=== PATIENT | male | born 1945 | race Caucasian/White ===

== ENCOUNTER 2019-10-15 10:45 | Inpatient (IN) | payer OTHER, MEDICARE ==
[~2019-10-15] VITALS: Ht 167.6 cm; Wt 87.1 kg
--- NOTE | 2019-10-15 11:08 | NUR ---
PT TO ED VIA WC W/ C/O "SEVERE" TESTICULAR SWELLING STARTED TUESDAY. PT REPORTS HX OF SAME, STATES SWELLING "COMES AND GOES, BUT THIS TIME IT DIDN'T GO." PT DENIES DYSURIA.
--- NOTE | 2019-10-15 11:52 | NUR ---
PIV PLACED IN LAC. PT AND FAMILY MEMBER AWARE OF NPO STATUS FOR PENDING SURGERY
[2019-10-15] MEDS ORDERED: ONDANSETRON 2MG/ML, 2ML ONE (11:57)
[2019-10-15] MEDS ORDERED: HYDROmorphone 2 MG/ML, 1ML ONE (11:58)
[2019-10-15] MEDS ORDERED: SODIUM CHLORIDE 0.9% 1,000ML IVBOLUS ONE ×2 (12:00→14:30)
[2019-10-15] MEDS ORDERED: SODIUM CHLORIDE FLUSH 10ML SYR IVF ONE (12:00)
[2019-10-15] MEDS ORDERED: HYDROmorphone 2 MG/ML, 1ML IVPush PRN ×2 (12:00→16:30)
[2019-10-15] MEDS ORDERED: ONDANSETRON 2MG/ML, 2ML IVPush ONE (12:00)
--- NOTE | 2019-10-15 12:06 | NUR ---
PT HAD WATER ABOUT TWO HOURS AGO, REPORTS HAS NOT EATEN TODAY.
--- NOTE | 2019-10-15 12:11 | NUR ---
PT MEDICATED ORDERED. PROVIDED W/ SWAB FOR MOUTH. LAB AT BEDSIDE.
[2019-10-15 12:29] LABS: MEAN CORPUSCULAR HEMOGLOBIN 30.6 pg (27.5-34.5); MEAN CORPUSCULAR VOLUME 92.8 fL (81-97); MEAN PLATELET VOLUME 7.6 fL (7.4-10.4); PLATELET COUNT 273 x10^3/uL (130-400); RED BLOOD COUNT 5.42 x10^6/uL (4.38-5.82); RED CELL DISTRIBUTION WIDTH 14.8 % (9.4-14.8)
[2019-10-15 12:34] LABS: ALANINE AMINOTRANSFERASE 58 U/L (12-78); ANION GAP 17 mmol/L (5-15); CALCIUM 8.7 mg/dL (8.5-10.1); CHLORIDE 98 mmol/L (98-107)
--- NOTE | 2019-10-15 12:37 | NUR ---
PT REPORTS PAIN IMPROVED W/ PAIN MEDICATION. PT AWARE WAITING FOR TEST RESULTS AND CHART REVIEW BY ERP.
[2019-10-15 12:44] LABS: ALKALINE PHOSPHATASE 122 U/L (45-117); BILIRUBIN,TOTAL 2.5 mg/dL (0.2-1.0); CREATININE 2.79 mg/dL (0.7-1.3); MD YES; TOTAL PROTEIN 7.2 g/dL (6.4-8.2)
[2019-10-15 12:46] LABS: ALBUMIN 2.4 g/dL (3.4-5.0)
[2019-10-15 12:47] LABS: BANDS%(MANUAL) 19 % (0-7); LYMPH#(MANUAL) 1.29 x10^3/uL (1-3.4); LYMPHS% (MANUAL) 7 % (22-44); METAMYELOCYTES# (MANUAL) 0.18 x10^3/uL (0-0); METAMYELOCYTES% (MANUAL) 1 % (0-1); MONOS% (MANUAL) 6 % (2-9); MYELOCYTES# (MANUAL) 0.18 x10^3/uL (0-0); MYELOCYTES% (MANUAL) 1 % (0-0); NRBC % (MANUAL) 1 % (0-1); SEG#(MANUAL) 12.14 x10^3/uL (1.8-6.8); SEGS% (MANUAL) 66 % (42-75)
[2019-10-15 12:48] LABS: <PLATELET ESTIMATE> ADEQUATE; <PLT MORPHOLOGY> NORMAL PLT MORPH; ANISOCYTOSIS 1+; POLYCHROMASIA 1+; TOXIC GRAN 1+
[2019-10-15] MEDS ORDERED: CEFOTETAN PMX 1GM/50ML 50 ML IV ONE (13:00)
[2019-10-15] MEDS ORDERED: METRONIDAZOLE PMX 500MG/100ML 100 ML IV ONE (13:00)
[2019-10-15] MEDS ORDERED: CEFOTETAN PMX 1GM/50ML 50 ML ONE (13:54)
--- NOTE | 2019-10-15 14:02 | NUR ---
TASK RN NOTE: PER MD WEAVER, PT ONLY NEEDS ONE BLOOD CX TOTAL BEFORE ABX ADMIN, CEFOTETAN INFUSING AFTER BLOOD CX INITIATED X 1. PT REPORTS PAIN IMPROVED S/P DILAUDID. SURGEON AT BEDSIDE FOR CONSULT. PT A&O, RESPS EVEN AND UNLABORED, NADN. BP AND SPO2 MONITORS IN PLACE. CALL LIGHT IN REACH. AWAITING ADMIT ORDERS AND BED ASSIGNMENT AT THIS TIME. Addendum: 10/15/19 at 1404 by EBONY BREAK RN NOTE: PER MD WEAVER, PT ONLY NEEDS ONE BLOOD CX TOTAL BEFORE ABX ADMIN, CEFOTETAN INFUSING AFTER BLOOD CX INITIATED X 1. PT REPORTS PAIN IMPROVED S/P DILAUDID. SURGEON AT BEDSIDE FOR CONSULT. PT A&O, RESPS EVEN AND UNLABORED, NADN. BP AND SPO2 MONITORS IN PLACE. CALL LIGHT IN REACH. AWAITING ADMIT ORDERS AND BED ASSIGNMENT AT THIS TIME.
[2019-10-15] MEDS ORDERED: SODIUM CHLORIDE 0.9% 1,000 ML IV SCH (14:22)
--- NOTE | 2019-10-15 14:22 | NUR ---
hospitalist Swapna at bedside for admit assessment. BP 108/63 noted by MD sreekanth notified pt has already received 1L NS. RN instructed to administer 1L NS bolus at 500mL/hr.
[2019-10-15] MEDS ORDERED: morphine SULFATE 10 MG/ML, 1ML IVPush PRN (14:30)
[2019-10-15] MEDS: HEPARIN 5,000 UNITS/ML, 1ML SQ SCH (14:30)
[2019-10-15] MEDS ORDERED: ACETAMINOPHEN 325 MG TABLET PO PRN (14:30)
[2019-10-15] MEDS ORDERED: hydrALAzine 20 MG/ML, 1ML IVPush PRN (14:30)
[2019-10-15] MEDS ORDERED: LABETALOL 5MG/ML, 20ML IVPush PRN (14:30)
[2019-10-15] MEDS ORDERED: AMPICILLIN/SULBACTAM 1,500 MG in SODIUM CHLORIDE 0.9% 50 ML IV SCH ×2 (14:30→21:30)
[2019-10-15] MEDS ORDERED: OXYcodone/APAP 5/325MG TABLET PO PRN (14:30)
--- NOTE | 2019-10-15 14:30 | NUR ---
BREAK RN NOTE: REPORT GIVEN BACK TO NADIR PUGA.
--- NOTE | 2019-10-15 14:40 | NUR ---
IVF FLUID BOLUS INFUSING ORDERED
[2019-10-15] MEDS ORDERED: MIDAZOLAM 1 MG/ML, 2ML ONE (14:42)
[2019-10-15] MEDS ORDERED: FENTANYL PF 250 MCG/5ML ONE (14:43)
--- NOTE | 2019-10-15 14:56 | NUR ---
REPORT TO JEAN-CLAUDE FROM [facility].
--- NOTE | 2019-10-15 15:02 | NUR ---
PT TAKEN TO OR
[2019-10-15] MEDS ORDERED: SUGAMMADEX 200 MG/2 ML IVPush ONE (15:33)
[2019-10-15] MEDS ORDERED: DEXAMETHASONE 4 MG/ML, 1ML ONE (15:33)
[2019-10-15] MEDS ORDERED: PHENYLEPHRINE 10 MG/ML ONE (15:33)
[2019-10-15] MEDS: NYSTATIN TOPICAL POWDER 15GM TP SCH (16:00)
[2019-10-15] MEDS ORDERED: METRONIDAZOLE PMX 500MG/100ML 100 ML ONE (16:16)
[2019-10-15] MEDS ORDERED: MIDAZOLAM 1 MG/ML, 2ML IV PRN (16:30)
[2019-10-15] MEDS ORDERED: LABETALOL 5MG/ML, 20ML IV PRN (16:30)
[2019-10-15] MEDS ORDERED: hydrALAzine 20 MG/ML, 1ML IV PRN (16:30)
[2019-10-15] MEDS ORDERED: DIAZEPAM 5 MG/ML, 2ML IVPush PRN (16:30)
[2019-10-15] MEDS ORDERED: ONDANSETRON ODT 8 MG PO PRN (16:30)
[2019-10-15] MEDS ORDERED: FENTANYL PF 100 MCG/2ML IV PRN (16:30)
[2019-10-15] MEDS ORDERED: PROMETHAZINE 25 MG/ML, 1ML IV PRN (16:30)
[2019-10-15] MEDS ORDERED: MEPERIDINE/PF 25MG/ML,1ML IVPush PRN (16:30)
[2019-10-15] MEDS ORDERED: EPHEDRINE 50 MG/ML, 1ML IVPush PRN (16:30)
[2019-10-15] MEDS ORDERED: ALBUTEROL SULFATE 2.5 MG/3 ML NPPB PRN (16:30)
[2019-10-15] MEDS ORDERED: OXYcodone 5 MG/5 ML ORAL.SOL UDC PO PRN (16:30)
[2019-10-15] MEDS ORDERED: ONDANSETRON 2MG/ML, 2ML IV PRN (16:30)
[2019-10-15] MEDS ORDERED: HALOPERIDOL 5 MG/ML IV PRN (16:30)
[2019-10-15] MEDS ORDERED: PROMETHAZINE 12.5 MG SUPP PR PRN (16:30)
[2019-10-15] MEDS ORDERED: SUCCINYLCHOLINE 20 MG/ML, 10ML ONE (16:46)
[2019-10-15] MEDS ORDERED: PROPOFOL 10 MG/ML, 20ML ONE (16:46)
[2019-10-15] MEDS ORDERED: ROCURONIUM 10MG/ML,5ML ONE (16:46)
[2019-10-15] MEDS ORDERED: FENTANYL PF 100 MCG/2ML ONE (18:35)
[2019-10-15] MEDS ORDERED: HYDROmorphone 1 MG/ML, 1ML INJ ONE (18:35)
[2019-10-15 21:17] VITALS: BP 90/59
[2019-10-15 22:56] LABS: ALANINE AMINOTRANSFERASE 47 U/L (12-78); ANION GAP 17 mmol/L (5-15); CALCIUM 7.5 mg/dL (8.5-10.1); CHLORIDE 105 mmol/L (98-107); CREATININE 2.01 mg/dL (0.7-1.3)
[2019-10-15 22:58] LABS: ALKALINE PHOSPHATASE 83 U/L (45-117); BILIRUBIN,TOTAL 2.1 mg/dL (0.2-1.0); TOTAL PROTEIN 5.7 g/dL (6.4-8.2)
[2019-10-16] MEDS ORDERED: LACTATED RINGERS 1,000 ML IVBOLUS ONE
[2019-10-16] MEDS ORDERED: NALOXONE 0.4 MG/ML, 1ML IVPush ONE
[2019-10-16 00:15] VITALS: BP 89/55
[2019-10-16 00:20] VITALS: BP 108/71
[2019-10-16 00:25] VITALS: BP 110/55
[2019-10-16] MEDS ORDERED: CEFTRIAXONE PMX 2GM/50ML 50 ML IV SCH (01:00)
[2019-10-16] MEDS ORDERED: SODIUM CHLORIDE 0.9% 1,000 ML IV SCH ×3 (01:00→14:22)
[2019-10-16] MEDS ORDERED: ONDANSETRON 2MG/ML, 2ML IVPush PRN ×2 (01:00→08:30)
[2019-10-16] MEDS ORDERED: METRONIDAZOLE PMX 500MG/100ML 100 ML IV SCH (01:00)
[2019-10-16] MEDS: NYSTATIN TOPICAL POWDER 15GM TP SCH ×4 (01:26→20:58)
[2019-10-16] MEDS ORDERED: ACETAMINOPHEN 650 MG SUPP PR PRN (01:30)
[2019-10-16 01:40] LABS: MICROSCOPIC AUTO
[2019-10-16 01:41] LABS: CULTURE INDICATED? YES
[2019-10-16 01:50] LABS: CREATININE,URINE RANDOM 71.8 mg/dL
[2019-10-16 02:27] VITALS: BP 84/52
[2019-10-16 02:41] VITALS: BP 90/54
[2019-10-16] MEDS ORDERED: LACTATED RINGERS 500 ML IVBOLUS ONE (03:00)
[2019-10-16] MEDS ORDERED: DEXTROSE 50%, 50ML SYRINGE ONE (03:41)
[2019-10-16] MEDS ORDERED: DEXTROSE 50%, 50ML SYRINGE IVPush ONE (04:00)
[2019-10-16] MEDS ORDERED: PHARMACY MAY ADJ FOR RENAL FX MC PRN (04:30)
[2019-10-16 04:45] LABS: TROPONIN I 0.378 ng/mL (0.000-0.045)
[2019-10-16] MEDS: PIPERACILLIN/TAZO/PMX 2.25GM 50 ML IV SCH ×3 (04:48→18:09)
[2019-10-16 04:50] LABS: MEAN CORPUSCULAR HEMOGLOBIN 30.8 pg (27.5-34.5); MEAN CORPUSCULAR HGB CONC 33.1 g/dL (33.2-36.2); MEAN CORPUSCULAR VOLUME 93.2 fL (81-97); MEAN PLATELET VOLUME 7.8 fL (7.4-10.4); PLATELET COUNT 230 x10^3/uL (130-400); RED BLOOD COUNT 4.59 x10^6/uL (4.38-5.82); RED CELL DISTRIBUTION WIDTH 15.3 % (9.4-14.8)
[2019-10-16 04:57] LABS: ALANINE AMINOTRANSFERASE 49 U/L (12-78); ALBUMIN 1.8 g/dL (3.4-5.0); ANION GAP 18 mmol/L (5-15); CALCIUM 7.6 mg/dL (8.5-10.1); CHLORIDE 106 mmol/L (98-107)
[2019-10-16 04:59] LABS: ALKALINE PHOSPHATASE 70 U/L (45-117); BILIRUBIN,TOTAL 2.1 mg/dL (0.2-1.0); TOTAL PROTEIN 5.4 g/dL (6.4-8.2)
[2019-10-16] MEDS ORDERED: LACTATED RINGERS 1,000 ML IV SCH (05:00)
[2019-10-16 05:36] LABS: MD YES
[2019-10-16 05:38] LABS: ANISOCYTOSIS 1+; BAND#(MANUAL) 3.13 x10^3/uL; BANDS%(MANUAL) 21 % (0-7); LYMPH#(MANUAL) 0.89 x10^3/uL (1-3.4); LYMPHS% (MANUAL) 6 % (22-44); METAMYELOCYTES# (MANUAL) 0.15 x10^3/uL (0-0); METAMYELOCYTES% (MANUAL) 1 % (0-1); MONOS#(MANUAL) 0.75 x10^3/uL (0.3-2.7); MONOS% (MANUAL) 5 % (2-9); MYELOCYTES# (MANUAL) 0.15 x10^3/uL (0-0); MYELOCYTES% (MANUAL) 1 % (0-0); NRBC % (MANUAL) 2 % (0-1); POLYCHROMASIA 1+; SEG#(MANUAL) 9.83 x10^3/uL (1.8-6.8); SEGS% (MANUAL) 66 % (42-75)
[2019-10-16 05:39] LABS: <PLATELET ESTIMATE> ADEQUATE; <PLT MORPHOLOGY> NORMAL PLT MORPH; TOXIC GRAN 1+
[2019-10-16] MEDS ORDERED: NOREPINEPHRINE 8 MG in SODIUM CHLORIDE 0.9% 242 ML IV PRN (05:54)
[2019-10-16] MEDS ORDERED: FENTANYL PF 100 MCG/2ML ONE (05:59)
[2019-10-16] MEDS ORDERED: FENTANYL PF 250 MCG/5ML IVPush ONE (06:00)
[2019-10-16] MEDS ORDERED: GLUCAGON 1 MG IM PRN (06:00)
[2019-10-16] MEDS ORDERED: HEPARIN 5,000 UNITS/ML, 1ML SQ SCH (06:00)
[2019-10-16] MEDS ORDERED: SENNA/DOCUSATE TABLET NG PRN (06:00)
[2019-10-16] MEDS ORDERED: SENNA 176 MG/5 ML ORAL SOL NG PRN (06:00)
[2019-10-16] MEDS ORDERED: PHARMACY MAY ADJ FOR RENAL FX MC SCH (06:00)
[2019-10-16] MEDS ORDERED: DEXTROSE 4 GM TAB.CHEW PO PRN (06:00)
[2019-10-16] MEDS ORDERED: LIDOCAINE-MPF 1%, 2ML ENDO PRN (06:00)
[2019-10-16] MEDS ORDERED: BISACODYL 10 MG SUPP PR PRN (06:00)
[2019-10-16] MEDS ORDERED: LACTULOSE 20 GM/30 ML UDC NG PRN (06:00)
[2019-10-16] MEDS ORDERED: DEXTROSE 50%, 50ML SYRINGE IVPush PRN (06:00)
[2019-10-16] MEDS: FENTANYL PF 100 MCG/2ML IVPush PRN (06:41)
[2019-10-16] MEDS: IPRATROPIUM 0.5 MG/2.5 ML INHA INLINE SCH ×5 (06:45→22:18)
[2019-10-16] MEDS ORDERED: NALOXONE 0.4 MG/ML, 1ML ONE (08:00)
[2019-10-16] MEDS ORDERED: MORPHINE 30MG/30ML PCA.SYR IV PRN (08:30)
[2019-10-16] MEDS ORDERED: FAMOTIDINE 20 MG/2 ML IVPush SCH (08:30)
[2019-10-16] MEDS ORDERED: CEFTRIAXONE PMX 2GM/50ML 50 ML IVPB SCH (08:30)
[2019-10-16] MEDS: SODIUM BICARBONATE 8.4% 150 MEQ in DEXTROSE 5% 1,000 ML IV SCH ×3 (08:38→23:19)
[2019-10-16] MEDS: HEPARIN 5,000 UNITS/ML, 1ML SQ SCH ×3 (08:44→15:52)
[2019-10-16] MEDS ORDERED: SODIUM BICARB 8.4%, 50ML SYRINGE IVPush ONE (09:00)
[2019-10-16] MEDS: PANTOPRAZOLE 40 MG IV IV SCH (09:02)
[2019-10-16] MEDS: SODIUM CHLORIDE FLUSH 10ML SYR IVF SCH ×2 (09:03→20:58)
[2019-10-16] MEDS: PROPOFOL 100 ML IV PRN ×2 (09:11→16:49)
[2019-10-16] MEDS: METRONIDAZOLE PMX 500MG/100ML 100 ML IV SCH ×3 (09:27→20:57)
[2019-10-16] MEDS: NOREPINEPHRINE 8 MG in SODIUM CHLORIDE 0.9% 242 ML IV PRN (09:37)
[2019-10-16] MEDS ORDERED: SODIUM CHLORIDE 0.9% 1,000ML IVBOLUS ONE (11:00)
[2019-10-16] MEDS ORDERED: ALBUMIN HUMAN 25% 100 ML IV ONE ×2 (11:00)
[2019-10-16 11:06] LABS: TROPONIN I 0.365 ng/mL (0.000-0.045)
[2019-10-16 14:56] LABS: TROPONIN I 0.495 ng/mL (0.000-0.045)
[2019-10-16] MEDS ORDERED: SUCCINYLCHOLINE 20 MG/ML, 10ML ONE (16:16)
[2019-10-16] MEDS ORDERED: ETOMIDATE 20 MG/10 ML ONE (16:16)
[2019-10-16] MEDS ORDERED: PROPOFOL 10 MG/ML, 20ML ONE (16:16)
[2019-10-17] MEDS: HEPARIN 5,000 UNITS/ML, 1ML SQ SCH ×4 (00:09→23:58)
[2019-10-17] MEDS: PIPERACILLIN/TAZO/PMX 2.25GM 50 ML IV SCH ×3 (00:09→12:29)
[2019-10-17] MEDS: PROPOFOL 100 ML IV PRN ×4 (00:14→21:21)
[2019-10-17] MEDS: NOREPINEPHRINE 8 MG in SODIUM CHLORIDE 0.9% 242 ML IV PRN (00:48)
[2019-10-17] MEDS: IPRATROPIUM 0.5 MG/2.5 ML INHA INLINE SCH ×6 (02:55→22:16)
[2019-10-17] MEDS: METRONIDAZOLE PMX 500MG/100ML 100 ML IV SCH ×2 (03:06→09:15)
[2019-10-17] MEDS: FENTANYL PF 100 MCG/2ML IVPush PRN (03:48)
[2019-10-17 04:00] VITALS: BP 111/60
[2019-10-17 04:23] LABS: MEAN CORPUSCULAR HEMOGLOBIN 30.9 pg (27.5-34.5); MEAN CORPUSCULAR HGB CONC 33.5 g/dL (33.2-36.2); MEAN CORPUSCULAR VOLUME 92.2 fL (81-97); MEAN PLATELET VOLUME 7.4 fL (7.4-10.4); PLATELET COUNT 214 x10^3/uL (130-400); RED BLOOD COUNT 3.95 x10^6/uL (4.38-5.82); RED CELL DISTRIBUTION WIDTH 15.3 % (9.4-14.8)
[2019-10-17 04:34] LABS: ANION GAP 5 mmol/L (5-15); CHLORIDE 106 mmol/L (98-107)
[2019-10-17 04:38] LABS: CHOL/HDL RATIO 8.6; CHOLESTEROL, TOTAL 60 mg/dL (140-239); CREATININE 1.11 mg/dL (0.7-1.3); HDL CHOL % 12 % (26-37); HDL CHOLESTEROL (DIRECT) 7 mg/dL (40-60); LDL CHOLESTEROL,CALCULATED 12 mg/dL (54-169); LDL/HDL RATIO 1.7 (0.5-3.0); TRIGLYCERIDES 203 mg/dL (50-200); VLDL CHOLESTEROL 41 mg/dL (0-25)
[2019-10-17 04:40] LABS: MD YES
[2019-10-17 04:42] LABS: BANDS%(MANUAL) 6 % (0-7); EOS#(MANUAL) 0.12 x10^3/uL (0.0-0.4); EOS% (MANUAL) 1 % (1-7); LYMPHS% (MANUAL) 12 % (22-44); MONOS#(MANUAL) 0.12 x10^3/uL (0.3-2.7); MONOS% (MANUAL) 1 % (2-9); SEG#(MANUAL) 9.36 x10^3/uL (1.8-6.8); SEGS% (MANUAL) 80 % (42-75)
[2019-10-17 04:43] LABS: <PLATELET ESTIMATE> ADEQUATE; <PLT MORPHOLOGY> NORMAL PLT MORPH; ANISOCYTOSIS 1+
[2019-10-17] MEDS ORDERED: POTASSIUM CHLORIDE 30 MEQ in SODIUM CHLORIDE 0.9% 100 ML IV ONE (07:00)
[2019-10-17] MEDS ORDERED: FAMOTIDINE 20 MG/2 ML IVPush SCH ×2 (09:00→21:00)
[2019-10-17] MEDS: PANTOPRAZOLE 40 MG IV IV SCH (09:11)
[2019-10-17] MEDS: SODIUM CHLORIDE FLUSH 10ML SYR IVF SCH ×2 (09:12→19:57)
[2019-10-17] MEDS: NYSTATIN TOPICAL POWDER 15GM TP SCH ×3 (09:12→19:58)
[2019-10-17] MEDS ORDERED: TPN PER PHARMACY MC PRN (09:30)
[2019-10-17] MEDS ORDERED: CALCIUM GLUCONATE 4.6 MEQ/10 ML IVPush ONE (11:00)
[2019-10-17 11:11] LABS: PREALBUMIN < 3.0 mg/dL (20.0-40.0)
[2019-10-17] MEDS ORDERED: CALCIUM GLUCONATE 4.6 MEQ in SODIUM CHLORIDE 0.9% 100 ML IV ONE (11:30)
[2019-10-17] MEDS: POTASSIUM CHLORIDE 20 MEQ in SODIUM CHLORIDE 0.45% 1,000 ML IV SCH ×2 (12:29→20:47)
[2019-10-17] MEDS ORDERED: FENTANYL PF 100 MCG/2ML IVPush ONE (13:30)
[2019-10-17 15:23] LABS: TROPONIN I 0.579 ng/mL (0.000-0.045)
[2019-10-17] MEDS ORDERED: SMOF TPN IV SCH (17:00)
[2019-10-17] MEDS ORDERED: DEXTROSE 50%, 50ML SYRINGE IVPush PRN (17:00)
[2019-10-17] MEDS ORDERED: AMINO ACID 10% IV SCH (17:00)
[2019-10-17] MEDS ORDERED: DEXTROSE 70% IV SCH (17:00)
[2019-10-17] MEDS ORDERED: [UNRECOGNIZED DRUG - OTHER] IV SCH (17:00)
[2019-10-17] MEDS ORDERED: DEXTROSE 10% 500 ML IV PRN (17:00)
[2019-10-17] MEDS ORDERED: FAT EMUL IV SCH (17:00)
[2019-10-17] MEDS: FILTER, DISP 1.2 MICRON FOR TPN/PVN IV PRN (18:02)
[2019-10-17] MEDS: PIPERACILLIN/TAZO/PMX 3.375GM 50 ML IV SCH ×2 (18:03→23:57)
[2019-10-17] MEDS: INSULIN REGULAR MEDIUM DOSE QDAY SQ-INSULIN SCH (20:01)
[2019-10-17] MEDS: INSULIN REGULAR MEDIUM DOSE Q6H X 48HRS SQ-INSULIN SCH (20:05)
[2019-10-18] MEDS: IPRATROPIUM 0.5 MG/2.5 ML INHA INLINE SCH ×6 (02:22→22:02)
[2019-10-18] MEDS: INSULIN REGULAR MEDIUM DOSE Q6H X 48HRS SQ-INSULIN SCH ×4 (03:57→22:51)
[2019-10-18 04:22] LABS: MEAN CORPUSCULAR HEMOGLOBIN 30.5 pg (27.5-34.5); MEAN CORPUSCULAR HGB CONC 33.1 g/dL (33.2-36.2); MEAN PLATELET VOLUME 7.7 fL (7.4-10.4); PLATELET COUNT 197 x10^3/uL (130-400); RED BLOOD COUNT 3.97 x10^6/uL (4.38-5.82); RED CELL DISTRIBUTION WIDTH 15.6 % (9.4-14.8)
[2019-10-18 04:36] LABS: ALANINE AMINOTRANSFERASE 36 U/L (12-78); ALBUMIN 1.5 g/dL (3.4-5.0); ANION GAP 5 mmol/L (5-15); CALCIUM 7.2 mg/dL (8.5-10.1); CHLORIDE 110 mmol/L (98-107); CREATININE 0.88 mg/dL (0.7-1.3)
[2019-10-18 04:39] LABS: ALKALINE PHOSPHATASE 70 U/L (45-117); BILIRUBIN,TOTAL 0.9 mg/dL (0.2-1.0); TOTAL PROTEIN 4.7 g/dL (6.4-8.2)
[2019-10-18] MEDS: PIPERACILLIN/TAZO/PMX 3.375GM 50 ML IV SCH ×4 (05:36→23:17)
[2019-10-18] MEDS: PROPOFOL 100 ML IV PRN (05:38)
[2019-10-18 05:42] LABS: BASOPHILS % (AUTO) 0 % (0-1); EOSINOPHILS # (AUTO) 0.29 x10^3/uL (0-0.4); EOSINOPHILS % (AUTO) 2 % (1-7); LYMPHOCYTES # (AUTO) 1.33 x10^3/uL (1-3.4); LYMPHOCYTES % (AUTO) 10 % (22-44); MD SCAN; MONOCYTES # (AUTO) 0.22 x10^3/uL (0.2-0.8); MONOCYTES % (AUTO) 2 % (2-9); NEUTROPHILS # (AUTO) 11.91 x10^3/uL (1.8-6.8); NEUTROPHILS % (AUTO) 87 % (42-75)
[2019-10-18] MEDS: NYSTATIN TOPICAL POWDER 15GM TP SCH ×3 (09:19→20:30)
[2019-10-18] MEDS: HEPARIN 5,000 UNITS/ML, 1ML SQ SCH ×3 (09:19→23:17)
[2019-10-18] MEDS: SODIUM CHLORIDE FLUSH 10ML SYR IVF SCH ×2 (09:19→20:30)
--- NOTE | 2019-10-18 10:31 | NUR ---
promote at trickle (10 ml/hr) until ok per surgery MD to advance
[2019-10-18] MEDS ORDERED: [UNRECOGNIZED DRUG - OTHER] IV SCH ×2 (17:00)
[2019-10-18] MEDS ORDERED: AMINO ACID 10% IV SCH ×2 (17:00)
[2019-10-18] MEDS ORDERED: SMOF TPN IV SCH ×2 (17:00)
[2019-10-18] MEDS ORDERED: FAT EMUL IV SCH ×2 (17:00)
[2019-10-18] MEDS ORDERED: DEXTROSE 70% IV SCH ×2 (17:00)
[2019-10-18] MEDS: FILTER, DISP 1.2 MICRON FOR TPN/PVN IV PRN (17:29)
[2019-10-18] MEDS: INSULIN REGULAR MEDIUM DOSE QDAY SQ-INSULIN SCH (20:25)
[2019-10-19] MEDS: PROPOFOL 100 ML IV PRN (00:14)
[2019-10-19] MEDS: IPRATROPIUM 0.5 MG/2.5 ML INHA INLINE SCH ×6 (02:01→23:00)
[2019-10-19 04:46] LABS: MEAN CORPUSCULAR HEMOGLOBIN 30.8 pg (27.5-34.5); MEAN CORPUSCULAR HGB CONC 33.5 g/dL (33.2-36.2); MEAN CORPUSCULAR VOLUME 91.8 fL (81-97); PLATELET COUNT 164 x10^3/uL (130-400); RED BLOOD COUNT 3.94 x10^6/uL (4.38-5.82); RED CELL DISTRIBUTION WIDTH 15.4 % (9.4-14.8)
[2019-10-19 04:59] LABS: ANION GAP 4 mmol/L (5-15); CALCIUM 7.5 mg/dL (8.5-10.1); CHLORIDE 111 mmol/L (98-107); TRIGLYCERIDES 204 mg/dL (50-200)
[2019-10-19] MEDS: PIPERACILLIN/TAZO/PMX 3.375GM 50 ML IV SCH ×3 (05:10→18:06)
[2019-10-19] MEDS: INSULIN REGULAR MEDIUM DOSE Q6H X 48HRS SQ-INSULIN SCH ×3 (05:11→17:35)
[2019-10-19 05:45] LABS: MD YES
[2019-10-19 05:47] LABS: EOS#(MANUAL) 0.13 x10^3/uL (0.0-0.4); EOS% (MANUAL) 1 % (1-7); LYMPH#(MANUAL) 1.15 x10^3/uL (1-3.4); LYMPHS% (MANUAL) 9 % (22-44); METAMYELOCYTES# (MANUAL) 0.38 x10^3/uL (0-0); METAMYELOCYTES% (MANUAL) 3 % (0-1); MONOS% (MANUAL) 7 % (2-9); SEG#(MANUAL) 10.24 x10^3/uL (1.8-6.8); SEGS% (MANUAL) 80 % (42-75)
[2019-10-19 05:48] LABS: <PLATELET ESTIMATE> ADEQUATE; <PLT MORPHOLOGY> NORMAL PLT MORPH; ANISOCYTOSIS 1+; TOXIC GRAN 1+
[2019-10-19 06:18] VITALS: BP 106/59
[2019-10-19] MEDS: HEPARIN 5,000 UNITS/ML, 1ML SQ SCH ×2 (07:50→17:29)
[2019-10-19] MEDS: SODIUM CHLORIDE FLUSH 10ML SYR IVF SCH ×2 (07:51→21:10)
[2019-10-19] MEDS: NYSTATIN TOPICAL POWDER 15GM TP SCH ×3 (07:51→21:11)
[2019-10-19] MEDS: FUROSEMIDE 100 MG in SODIUM CHLORIDE 0.9% 90 ML IV PRN (09:33)
[2019-10-19] MEDS: FENTANYL PF 100 MCG/2ML IVPush PRN ×3 (14:12→17:31)
[2019-10-19] MEDS ORDERED: [UNRECOGNIZED DRUG - OTHER] IV SCH (17:00)
[2019-10-19] MEDS ORDERED: FAT EMUL IV SCH (17:00)
[2019-10-19] MEDS ORDERED: SMOF TPN IV SCH (17:00)
[2019-10-19] MEDS ORDERED: AMINO ACID 10% IV SCH (17:00)
[2019-10-19] MEDS ORDERED: DEXTROSE 70% IV SCH (17:00)
[2019-10-19] MEDS: FILTER, DISP 1.2 MICRON FOR TPN/PVN IV PRN (17:31)
[2019-10-19] MEDS: INSULIN REGULAR MEDIUM DOSE QDAY SQ-INSULIN SCH ×2 (20:14→21:10)
[2019-10-20] MEDS: HEPARIN 5,000 UNITS/ML, 1ML SQ SCH ×4 (00:09→23:22)
[2019-10-20] MEDS: PIPERACILLIN/TAZO/PMX 3.375GM 50 ML IV SCH ×5 (00:10→23:21)
[2019-10-20] MEDS: FENTANYL PF 100 MCG/2ML IVPush PRN (01:47)
[2019-10-20] MEDS: IPRATROPIUM 0.5 MG/2.5 ML INHA INLINE SCH ×3 (03:00→10:01)
[2019-10-20 04:36] VITALS: BP 115/59
[2019-10-20 05:16] LABS: MEAN CORPUSCULAR HEMOGLOBIN 30.8 pg (27.5-34.5); MEAN CORPUSCULAR HGB CONC 33.8 g/dL (33.2-36.2); MEAN CORPUSCULAR VOLUME 91.2 fL (81-97); MEAN PLATELET VOLUME 8.4 fL (7.4-10.4); PLATELET COUNT 184 x10^3/uL (130-400); RED BLOOD COUNT 4.23 x10^6/uL (4.38-5.82); RED CELL DISTRIBUTION WIDTH 15.3 % (9.4-14.8)
[2019-10-20 05:27] LABS: ANION GAP 6 mmol/L (5-15); CALCIUM 7.9 mg/dL (8.5-10.1); CHLORIDE 104 mmol/L (98-107); CREATININE 0.85 mg/dL (0.7-1.3)
[2019-10-20 05:51] LABS: MD YES
[2019-10-20 05:54] LABS: <PLATELET ESTIMATE> ADEQUATE; <PLT MORPHOLOGY> NORMAL PLT MORPH; ANISOCYTOSIS 1+; BAND#(MANUAL) 0.14 x10^3/uL; BANDS%(MANUAL) 1 % (0-7); EOS#(MANUAL) 0.29 x10^3/uL (0.0-0.4); EOS% (MANUAL) 2 % (1-7); LYMPHS% (MANUAL) 16 % (22-44); METAMYELOCYTES# (MANUAL) 0.29 x10^3/uL (0-0); METAMYELOCYTES% (MANUAL) 2 % (0-1); MONOS#(MANUAL) 0.14 x10^3/uL (0.3-2.7); MONOS% (MANUAL) 1 % (2-9); SEG#(MANUAL) 11.23 x10^3/uL (1.8-6.8); SEGS% (MANUAL) 78 % (42-75)
[2019-10-20] MEDS: NYSTATIN TOPICAL POWDER 15GM TP SCH ×3 (09:13→21:30)
[2019-10-20] MEDS: SODIUM CHLORIDE FLUSH 10ML SYR IVF SCH ×2 (09:13→21:31)
[2019-10-20] MEDS: INSULIN LISPRO 100 UNITS/ML, PEN SQ-INSULIN SCH ×3 (13:38→23:21)
[2019-10-20] MEDS: FUROSEMIDE 100 MG in SODIUM CHLORIDE 0.9% 90 ML IV PRN (13:47)
[2019-10-20] MEDS ORDERED: SMOF TPN IV SCH (17:00)
[2019-10-20] MEDS ORDERED: [UNRECOGNIZED DRUG - OTHER] IV SCH (17:00)
[2019-10-20] MEDS ORDERED: FAT EMUL IV SCH (17:00)
[2019-10-20] MEDS ORDERED: AMINO ACID 10% IV SCH (17:00)
[2019-10-20] MEDS ORDERED: DEXTROSE 70% IV SCH (17:00)
[2019-10-20] MEDS: FILTER, DISP 1.2 MICRON FOR TPN/PVN IV PRN (17:51)
[2019-10-21] MEDS: PIPERACILLIN/TAZO/PMX 3.375GM 50 ML IV SCH ×4 (05:40→23:59)
[2019-10-21] MEDS: INSULIN LISPRO 100 UNITS/ML, PEN SQ-INSULIN SCH ×4 (05:40→20:13)
[2019-10-21 06:06] LABS: MEAN CORPUSCULAR HEMOGLOBIN 30.7 pg (27.5-34.5); MEAN CORPUSCULAR HGB CONC 33.2 g/dL (33.2-36.2); MEAN CORPUSCULAR VOLUME 92.4 fL (81-97); MEAN PLATELET VOLUME 8.7 fL (7.4-10.4); PLATELET COUNT 237 x10^3/uL (130-400); RED BLOOD COUNT 4.33 x10^6/uL (4.38-5.82); RED CELL DISTRIBUTION WIDTH 14.9 % (9.4-14.8)
[2019-10-21 06:15] LABS: ANION GAP 5 mmol/L (5-15); CALCIUM 8.1 mg/dL (8.5-10.1); CHLORIDE 103 mmol/L (98-107); CREATININE 0.84 mg/dL (0.7-1.3)
[2019-10-21 06:21] LABS: MD YES
[2019-10-21 06:23] LABS: BASOS#(MANUAL) 0.15 x10^3/uL (0-0.1); BASOS% (MANUAL) 1 % (0-1); EOS% (MANUAL) 2 % (1-7); LYMPH#(MANUAL) 1.18 x10^3/uL (1-3.4); LYMPHS% (MANUAL) 8 % (22-44); METAMYELOCYTES# (MANUAL) 0.44 x10^3/uL (0-0); METAMYELOCYTES% (MANUAL) 3 % (0-1); MONOS#(MANUAL) 0.74 x10^3/uL (0.3-2.7); MONOS% (MANUAL) 5 % (2-9); MYELOCYTES# (MANUAL) 0.15 x10^3/uL (0-0); MYELOCYTES% (MANUAL) 1 % (0-0); SEG#(MANUAL) 11.84 x10^3/uL (1.8-6.8); SEGS% (MANUAL) 80 % (42-75)
[2019-10-21 06:24] LABS: <PLATELET ESTIMATE> ADEQUATE; ANISOCYTOSIS 1+
[2019-10-21 06:25] LABS: <PLT MORPHOLOGY> NORMAL PLT MORPH
[2019-10-21 06:26] LABS: TOXIC GRAN 1+
[2019-10-21] MEDS ORDERED: MAGNESIUM SULFATE PMX 2GM/50ML 50 ML IV ONE (07:00)
[2019-10-21] MEDS: SODIUM CHLORIDE FLUSH 10ML SYR IVF SCH ×2 (07:31→20:12)
[2019-10-21] MEDS: NYSTATIN TOPICAL POWDER 15GM TP SCH ×3 (07:52→20:13)
[2019-10-21] MEDS: HEPARIN 5,000 UNITS/ML, 1ML SQ SCH ×3 (07:54→23:59)
--- NOTE | 2019-10-21 11:59 | NUR ---
REC: BRAIDING MACHINE TENDER intervention in a SNF. Rec: Thin liquid diet Addendum: 10/21/19 at 1159 by Aline TREVINO Amended: Links added.
[2019-10-22] MEDS: PIPERACILLIN/TAZO/PMX 3.375GM 50 ML IV SCH ×3 (05:26→17:31)
[2019-10-22 05:46] LABS: MEAN CORPUSCULAR HEMOGLOBIN 31.2 pg (27.5-34.5); MEAN CORPUSCULAR HGB CONC 33.4 g/dL (33.2-36.2); MEAN CORPUSCULAR VOLUME 93.4 fL (81-97); MEAN PLATELET VOLUME 8.3 fL (7.4-10.4); PLATELET COUNT 329 x10^3/uL (130-400); RED BLOOD COUNT 4.27 x10^6/uL (4.38-5.82); RED CELL DISTRIBUTION WIDTH 15.2 % (9.4-14.8)
[2019-10-22 05:52] LABS: ANION GAP 8 mmol/L (5-15); CALCIUM 8.2 mg/dL (8.5-10.1); CHLORIDE 104 mmol/L (98-107)
[2019-10-22 05:55] LABS: CREATININE 1.02 mg/dL (0.7-1.3)
[2019-10-22 06:29] LABS: MD YES
[2019-10-22 06:30] LABS: BAND#(MANUAL) 0.39 x10^3/uL; BANDS%(MANUAL) 3 % (0-7); EOS#(MANUAL) 0.26 x10^3/uL (0.0-0.4); EOS% (MANUAL) 2 % (1-7); LYMPH#(MANUAL) 1.44 x10^3/uL (1-3.4); LYMPHS% (MANUAL) 11 % (22-44); METAMYELOCYTES# (MANUAL) 0.26 x10^3/uL (0-0); METAMYELOCYTES% (MANUAL) 2 % (0-1); MONOS#(MANUAL) 1.05 x10^3/uL (0.3-2.7); MONOS% (MANUAL) 8 % (2-9); MYELOCYTES# (MANUAL) 0.26 x10^3/uL (0-0); MYELOCYTES% (MANUAL) 2 % (0-0); SEG#(MANUAL) 9.43 x10^3/uL (1.8-6.8); SEGS% (MANUAL) 72 % (42-75)
[2019-10-22 06:31] LABS: <PLATELET ESTIMATE> ADEQUATE; <PLT MORPHOLOGY> NORMAL PLT MORPH; ANISOCYTOSIS 1+; POLYCHROMASIA 1+
[2019-10-22] MEDS ORDERED: FUROSEMIDE 20 MG TABLET ONE (08:12)
[2019-10-22] MEDS: INSULIN LISPRO 100 UNITS/ML, PEN SQ-INSULIN SCH ×4 (08:54→20:50)
[2019-10-22] MEDS: HEPARIN 5,000 UNITS/ML, 1ML SQ SCH ×2 (08:55→16:13)
[2019-10-22] MEDS: FUROSEMIDE 10 MG/ML ORAL SOL PO SCH (08:56)
[2019-10-22] MEDS: SODIUM CHLORIDE FLUSH 10ML SYR IVF SCH ×2 (08:56→20:54)
[2019-10-22] MEDS: NYSTATIN TOPICAL POWDER 15GM TP SCH ×3 (09:01→22:26)
[2019-10-22 13:37] VITALS: BP 114/69
[2019-10-22 19:02] VITALS: BP 130/75
[2019-10-23] MEDS: PIPERACILLIN/TAZO/PMX 3.375GM 50 ML IV SCH ×5 (00:23→23:31)
[2019-10-23] MEDS: HEPARIN 5,000 UNITS/ML, 1ML SQ SCH ×4 (00:24→23:32)
[2019-10-23 01:36] VITALS: BP 125/71
[2019-10-23 05:16] VITALS: BP 128/66
[2019-10-23 06:16] LABS: BASOPHILS # (AUTO) 0.01 x10^3/uL (0-0.1); BASOPHILS % (AUTO) 0 % (0-1); EOSINOPHILS # (AUTO) 0.37 x10^3/uL (0-0.4); EOSINOPHILS % (AUTO) 3 % (1-7); LYMPHOCYTES # (AUTO) 1.38 x10^3/uL (1-3.4); LYMPHOCYTES % (AUTO) 12 % (22-44); MD NO; MEAN CORPUSCULAR HEMOGLOBIN 30.9 pg (27.5-34.5); MEAN CORPUSCULAR HGB CONC 33.1 g/dL (33.2-36.2); MEAN CORPUSCULAR VOLUME 93.1 fL (81-97); MEAN PLATELET VOLUME 8.4 fL (7.4-10.4); MONOCYTES # (AUTO) 0.92 x10^3/uL (0.2-0.8); MONOCYTES % (AUTO) 8 % (2-9); NEUTROPHILS # (AUTO) 8.41 x10^3/uL (1.8-6.8); NEUTROPHILS % (AUTO) 76 % (42-75); PLATELET COUNT 442 x10^3/uL (130-400); RED BLOOD COUNT 4.14 x10^6/uL (4.38-5.82); RED CELL DISTRIBUTION WIDTH 15.2 % (9.4-14.8)
[2019-10-23 07:49] VITALS: BP 116/68
[2019-10-23 07:58] LABS: ANION GAP 6 mmol/L (5-15); CALCIUM 8.6 mg/dL (8.5-10.1); CHLORIDE 107 mmol/L (98-107); CREATININE 0.91 mg/dL (0.7-1.3)
[2019-10-23] MEDS: INSULIN LISPRO 100 UNITS/ML, PEN SQ-INSULIN SCH ×4 (08:14→23:32)
[2019-10-23] MEDS: SODIUM CHLORIDE FLUSH 10ML SYR IVF SCH ×2 (08:15→23:31)
[2019-10-23] MEDS: NYSTATIN TOPICAL POWDER 15GM TP SCH ×3 (08:15→23:33)
[2019-10-23] MEDS: FUROSEMIDE 10 MG/ML ORAL SOL PO SCH (08:16)
--- NOTE | 2019-10-23 11:21 | NUR ---
CHOPPED/ THINS Addendum: 10/23/19 at [address] Amended: Links added.
[2019-10-23 12:48] VITALS: BP 118/66
[2019-10-23 19:20] VITALS: BP 127/72
[2019-10-24 00:42] VITALS: BP 114/67
[2019-10-24 04:46] LABS: ANION GAP 6 mmol/L (5-15); CALCIUM 8.5 mg/dL (8.5-10.1); CHLORIDE 107 mmol/L (98-107)
[2019-10-24 04:48] LABS: CREATININE 0.81 mg/dL (0.7-1.3)
[2019-10-24 04:57] LABS: BASOPHILS # (AUTO) 0.03 x10^3/uL (0-0.1); BASOPHILS % (AUTO) 0 % (0-1); EOSINOPHILS # (AUTO) 0.26 x10^3/uL (0-0.4); EOSINOPHILS % (AUTO) 3 % (1-7); LYMPHOCYTES # (AUTO) 1.41 x10^3/uL (1-3.4); LYMPHOCYTES % (AUTO) 14 % (22-44); MD NO; MEAN CORPUSCULAR HGB CONC 33.1 g/dL (33.2-36.2); MEAN CORPUSCULAR VOLUME 93.8 fL (81-97); MEAN PLATELET VOLUME 7.8 fL (7.4-10.4); MONOCYTES # (AUTO) 0.98 x10^3/uL (0.2-0.8); MONOCYTES % (AUTO) 10 % (2-9); NEUTROPHILS # (AUTO) 7.39 x10^3/uL (1.8-6.8); NEUTROPHILS % (AUTO) 73 % (42-75); PLATELET COUNT 551 x10^3/uL (130-400); RED BLOOD COUNT 4.08 x10^6/uL (4.38-5.82)
[2019-10-24] MEDS: PIPERACILLIN/TAZO/PMX 3.375GM 50 ML IV SCH ×3 (05:46→18:11)
[2019-10-24] MEDS: INSULIN LISPRO 100 UNITS/ML, PEN SQ-INSULIN SCH ×4 (07:00→21:00)
[2019-10-24 07:08] VITALS: BP 121/61
[2019-10-24] MEDS: HEPARIN 5,000 UNITS/ML, 1ML SQ SCH ×2 (08:12→16:18)
[2019-10-24] MEDS: NYSTATIN TOPICAL POWDER 15GM TP SCH ×3 (08:13→22:28)
[2019-10-24] MEDS: SODIUM CHLORIDE FLUSH 10ML SYR IVF SCH ×2 (08:13→22:28)
[2019-10-24] MEDS: FUROSEMIDE 10 MG/ML ORAL SOL PO SCH (08:13)
[2019-10-24 12:57] VITALS: BP 115/70
[2019-10-24 19:02] VITALS: BP 121/68
[2019-10-25] MEDS: PIPERACILLIN/TAZO/PMX 3.375GM 50 ML IV SCH ×5 (00:11→23:49)
[2019-10-25] MEDS: HEPARIN 5,000 UNITS/ML, 1ML SQ SCH ×4 (00:12→23:50)
[2019-10-25 01:30] VITALS: BP 110/63
[2019-10-25 06:23] LABS: BASOPHILS # (AUTO) 0.09 x10^3/uL (0-0.1); BASOPHILS % (AUTO) 1 % (0-1); EOSINOPHILS # (AUTO) 0.23 x10^3/uL (0-0.4); EOSINOPHILS % (AUTO) 3 % (1-7); LYMPHOCYTES # (AUTO) 1.68 x10^3/uL (1-3.4); LYMPHOCYTES % (AUTO) 18 % (22-44); MD NO; MEAN CORPUSCULAR HEMOGLOBIN 31.1 pg (27.5-34.5); MEAN CORPUSCULAR VOLUME 94.1 fL (81-97); MEAN PLATELET VOLUME 7.6 fL (7.4-10.4); MONOCYTES % (AUTO) 11 % (2-9); NEUTROPHILS # (AUTO) 6.46 x10^3/uL (1.8-6.8); NEUTROPHILS % (AUTO) 68 % (42-75); PLATELET COUNT 547 x10^3/uL (130-400); RED BLOOD COUNT 4.15 x10^6/uL (4.38-5.82)
[2019-10-25 06:33] LABS: ANION GAP 7 mmol/L (5-15); CALCIUM 8.4 mg/dL (8.5-10.1); CHLORIDE 106 mmol/L (98-107); CREATININE 0.79 mg/dL (0.7-1.3)
[2019-10-25] MEDS: INSULIN LISPRO 100 UNITS/ML, PEN SQ-INSULIN SCH ×4 (06:38→21:18)
[2019-10-25 06:45] VITALS: BP 110/69
[2019-10-25] MEDS: NYSTATIN TOPICAL POWDER 15GM TP SCH ×3 (08:40→23:49)
[2019-10-25] MEDS: FUROSEMIDE 10 MG/ML ORAL SOL PO SCH (08:40)
[2019-10-25] MEDS: SODIUM CHLORIDE FLUSH 10ML SYR IVF SCH ×2 (08:41→21:19)
[2019-10-25 13:25] VITALS: BP 104/56
[2019-10-25 19:39] VITALS: BP 127/74
[2019-10-26 01:46] VITALS: BP 108/67
[2019-10-26] MEDS: PIPERACILLIN/TAZO/PMX 3.375GM 50 ML IV SCH ×3 (06:22→17:26)
[2019-10-26 06:38] LABS: BASOPHILS # (AUTO) 0.12 x10^3/uL (0-0.1); BASOPHILS % (AUTO) 1 % (0-1); EOSINOPHILS % (AUTO) 2 % (1-7); LYMPHOCYTES % (AUTO) 16 % (22-44); MD NO; MEAN CORPUSCULAR HEMOGLOBIN 31.2 pg (27.5-34.5); MEAN CORPUSCULAR HGB CONC 33.1 g/dL (33.2-36.2); MEAN CORPUSCULAR VOLUME 94.2 fL (81-97); MEAN PLATELET VOLUME 7.3 fL (7.4-10.4); MONOCYTES # (AUTO) 0.95 x10^3/uL (0.2-0.8); MONOCYTES % (AUTO) 9 % (2-9); NEUTROPHILS # (AUTO) 7.54 x10^3/uL (1.8-6.8); NEUTROPHILS % (AUTO) 72 % (42-75); PLATELET COUNT 658 x10^3/uL (130-400); RED BLOOD COUNT 4.21 x10^6/uL (4.38-5.82); RED CELL DISTRIBUTION WIDTH 15.2 % (9.4-14.8)
[2019-10-26 06:39] LABS: ANION GAP 7 mmol/L (5-15); CALCIUM 8.4 mg/dL (8.5-10.1); CHLORIDE 103 mmol/L (98-107); CREATININE 0.82 mg/dL (0.7-1.3)
[2019-10-26 06:59] VITALS: BP 136/69
[2019-10-26] MEDS: INSULIN LISPRO 100 UNITS/ML, PEN SQ-INSULIN SCH ×4 (07:53→22:47)
[2019-10-26] MEDS: HEPARIN 5,000 UNITS/ML, 1ML SQ SCH ×2 (08:13→15:39)
[2019-10-26] MEDS: SODIUM CHLORIDE FLUSH 10ML SYR IVF SCH ×2 (08:14→22:48)
[2019-10-26] MEDS: NYSTATIN TOPICAL POWDER 15GM TP SCH ×3 (08:14→22:47)
[2019-10-26] MEDS: FUROSEMIDE 10 MG/ML ORAL SOL PO SCH (08:14)
[2019-10-26] MEDS: MORPHINE SULFATE 4 MG/ML, 1ML IVPush PRN (10:13)
[2019-10-26 13:33] VITALS: BP 113/69
[2019-10-26] MEDS: ACETAMINOPHEN 650 MG/20.3 ML UDC PO/NG PRN (15:52)
[2019-10-26 21:03] VITALS: BP_SYST 113; BP_SYST 122; BP_DIAS 73; BP_DIAS 81
[2019-10-27] MEDS: PIPERACILLIN/TAZO/PMX 3.375GM 50 ML IV SCH ×4 (00:06→18:10)
[2019-10-27] MEDS: HEPARIN 5,000 UNITS/ML, 1ML SQ SCH ×3 (00:06→16:17)
[2019-10-27 00:51] VITALS: BP 121/69
[2019-10-27 05:59] LABS: BASOPHILS # (AUTO) 0.15 x10^3/uL (0-0.1); BASOPHILS % (AUTO) 1 % (0-1); EOSINOPHILS # (AUTO) 0.16 x10^3/uL (0-0.4); EOSINOPHILS % (AUTO) 1 % (1-7); LYMPHOCYTES # (AUTO) 1.64 x10^3/uL (1-3.4); LYMPHOCYTES % (AUTO) 14 % (22-44); MD NO; MEAN CORPUSCULAR HEMOGLOBIN 30.8 pg (27.5-34.5); MEAN CORPUSCULAR HGB CONC 33.1 g/dL (33.2-36.2); MEAN CORPUSCULAR VOLUME 93.1 fL (81-97); MEAN PLATELET VOLUME 7.7 fL (7.4-10.4); MONOCYTES # (AUTO) 0.88 x10^3/uL (0.2-0.8); MONOCYTES % (AUTO) 8 % (2-9); NEUTROPHILS # (AUTO) 8.81 x10^3/uL (1.8-6.8); NEUTROPHILS % (AUTO) 76 % (42-75); PLATELET COUNT 641 x10^3/uL (130-400); RED BLOOD COUNT 4.34 x10^6/uL (4.38-5.82); RED CELL DISTRIBUTION WIDTH 14.9 % (9.4-14.8)
[2019-10-27 06:13] LABS: ANION GAP 7 mmol/L (5-15); CALCIUM 8.4 mg/dL (8.5-10.1); CHLORIDE 102 mmol/L (98-107)
[2019-10-27 06:15] LABS: CREATININE 0.81 mg/dL (0.7-1.3)
[2019-10-27 06:34] VITALS: BP 114/66
[2019-10-27] MEDS: INSULIN LISPRO 100 UNITS/ML, PEN SQ-INSULIN SCH ×4 (07:00→21:00)
[2019-10-27] MEDS ORDERED: FUROSEMIDE 20 MG TABLET ONE (08:11)
[2019-10-27] MEDS: FUROSEMIDE 10 MG/ML ORAL SOL PO SCH (08:13)
[2019-10-27] MEDS: NYSTATIN TOPICAL POWDER 15GM TP SCH ×3 (08:14→22:13)
[2019-10-27] MEDS: SODIUM CHLORIDE FLUSH 10ML SYR IVF SCH ×2 (08:14→22:13)
[2019-10-27 12:00] VITALS: BP 108/64
[2019-10-27 19:50] VITALS: BP 117/70
[2019-10-28] MEDS: HEPARIN 5,000 UNITS/ML, 1ML SQ SCH ×3 (00:20→16:06)
[2019-10-28] MEDS: PIPERACILLIN/TAZO/PMX 3.375GM 50 ML IV SCH ×4 (00:20→18:06)
[2019-10-28] MEDS: ACETAMINOPHEN 650 MG/20.3 ML UDC PO/NG PRN (01:01)
[2019-10-28 03:12] VITALS: BP 132/69
[2019-10-28 06:26] LABS: BASOPHILS # (AUTO) 0.21 x10^3/uL (0-0.1); BASOPHILS % (AUTO) 2 % (0-1); EOSINOPHILS # (AUTO) 0.28 x10^3/uL (0-0.4); EOSINOPHILS % (AUTO) 3 % (1-7); LYMPHOCYTES % (AUTO) 18 % (22-44); MD NO; MEAN CORPUSCULAR HEMOGLOBIN 30.8 pg (27.5-34.5); MEAN CORPUSCULAR HGB CONC 33.1 g/dL (33.2-36.2); MEAN CORPUSCULAR VOLUME 93.2 fL (81-97); MEAN PLATELET VOLUME 7.5 fL (7.4-10.4); MONOCYTES # (AUTO) 0.85 x10^3/uL (0.2-0.8); MONOCYTES % (AUTO) 9 % (2-9); NEUTROPHILS # (AUTO) 6.74 x10^3/uL (1.8-6.8); NEUTROPHILS % (AUTO) 68 % (42-75); PLATELET COUNT 571 x10^3/uL (130-400); RED BLOOD COUNT 4.23 x10^6/uL (4.38-5.82)
[2019-10-28] MEDS: INSULIN LISPRO 100 UNITS/ML, PEN SQ-INSULIN SCH ×4 (06:26→19:27)
[2019-10-28 06:30] LABS: ALBUMIN 2.1 g/dL (3.4-5.0); ANION GAP 9 mmol/L (5-15); CALCIUM 8.5 mg/dL (8.5-10.1); CHLORIDE 103 mmol/L (98-107); CREATININE 0.75 mg/dL (0.7-1.3)
[2019-10-28 07:17] VITALS: BP 124/72
[2019-10-28] MEDS: FUROSEMIDE 10 MG/ML ORAL SOL PO SCH (08:18)
[2019-10-28] MEDS: SODIUM CHLORIDE FLUSH 10ML SYR IVF SCH ×2 (08:18→19:48)
[2019-10-28] MEDS: NYSTATIN TOPICAL POWDER 15GM TP SCH ×3 (08:18→19:48)
[2019-10-28 13:43] VITALS: BP 110/67
[2019-10-28 19:44] VITALS: BP 112/66
[2019-10-29] MEDS: HEPARIN 5,000 UNITS/ML, 1ML SQ SCH ×3 (00:15→16:14)
[2019-10-29] MEDS: PIPERACILLIN/TAZO/PMX 3.375GM 50 ML IV SCH ×4 (00:15→18:24)
[2019-10-29 01:21] VITALS: BP 106/68
[2019-10-29 05:45] LABS: BASOPHILS # (AUTO) 0.13 x10^3/uL (0-0.1); BASOPHILS % (AUTO) 2 % (0-1); EOSINOPHILS # (AUTO) 0.37 x10^3/uL (0-0.4); EOSINOPHILS % (AUTO) 4 % (1-7); LYMPHOCYTES # (AUTO) 1.67 x10^3/uL (1-3.4); LYMPHOCYTES % (AUTO) 19 % (22-44); MD NO; MEAN CORPUSCULAR HEMOGLOBIN 31.1 pg (27.5-34.5); MEAN CORPUSCULAR HGB CONC 33.2 g/dL (33.2-36.2); MEAN CORPUSCULAR VOLUME 93.7 fL (81-97); MEAN PLATELET VOLUME 7.5 fL (7.4-10.4); MONOCYTES # (AUTO) 0.93 x10^3/uL (0.2-0.8); MONOCYTES % (AUTO) 11 % (2-9); NEUTROPHILS # (AUTO) 5.73 x10^3/uL (1.8-6.8); NEUTROPHILS % (AUTO) 65 % (42-75); PLATELET COUNT 590 x10^3/uL (130-400); RED BLOOD COUNT 4.23 x10^6/uL (4.38-5.82); RED CELL DISTRIBUTION WIDTH 14.7 % (9.4-14.8)
[2019-10-29 05:53] LABS: ANION GAP 6 mmol/L (5-15); CALCIUM 8.4 mg/dL (8.5-10.1); CHLORIDE 105 mmol/L (98-107); CREATININE 0.79 mg/dL (0.7-1.3)
[2019-10-29] MEDS: INSULIN LISPRO 100 UNITS/ML, PEN SQ-INSULIN SCH (06:07)
[2019-10-29 07:44] VITALS: BP 109/69
[2019-10-29] MEDS: FUROSEMIDE 10 MG/ML ORAL SOL PO SCH (09:00)
[2019-10-29] MEDS: SODIUM CHLORIDE FLUSH 10ML SYR IVF SCH ×2 (09:00→19:57)
[2019-10-29] MEDS: NYSTATIN TOPICAL POWDER 15GM TP SCH ×3 (10:26→19:57)
[2019-10-29] MEDS: MORPHINE SULFATE 4 MG/ML, 1ML IVPush PRN (11:03)
[2019-10-29] MEDS: DRONABINOL 2.5 MG CAPSULE PO SCH ×2 (11:51→19:57)
[2019-10-29 14:10] VITALS: BP 116/74
[2019-10-29 20:43] VITALS: BP 107/65
[2019-10-30] MEDS: PIPERACILLIN/TAZO/PMX 3.375GM 50 ML IV SCH ×5 (00:34→23:52)
[2019-10-30] MEDS: HEPARIN 5,000 UNITS/ML, 1ML SQ SCH ×3 (00:34→17:36)
[2019-10-30 02:19] VITALS: BP 111/64
[2019-10-30 05:45] LABS: BASOPHILS # (AUTO) 0.21 x10^3/uL (0-0.1); BASOPHILS % (AUTO) 3 % (0-1); EOSINOPHILS # (AUTO) 0.37 x10^3/uL (0-0.4); EOSINOPHILS % (AUTO) 5 % (1-7); LYMPHOCYTES # (AUTO) 1.64 x10^3/uL (1-3.4); LYMPHOCYTES % (AUTO) 22 % (22-44); MD NO; MEAN CORPUSCULAR HGB CONC 33.4 g/dL (33.2-36.2); MEAN CORPUSCULAR VOLUME 92.6 fL (81-97); MEAN PLATELET VOLUME 7.5 fL (7.4-10.4); MONOCYTES # (AUTO) 0.71 x10^3/uL (0.2-0.8); MONOCYTES % (AUTO) 9 % (2-9); NEUTROPHILS # (AUTO) 4.62 x10^3/uL (1.8-6.8); NEUTROPHILS % (AUTO) 61 % (42-75); PLATELET COUNT 502 x10^3/uL (130-400); RED BLOOD COUNT 4.31 x10^6/uL (4.38-5.82); RED CELL DISTRIBUTION WIDTH 14.9 % (9.4-14.8)
[2019-10-30 05:59] LABS: ANION GAP 6 mmol/L (5-15); CALCIUM 8.4 mg/dL (8.5-10.1); CHLORIDE 100 mmol/L (98-107)
[2019-10-30 06:02] LABS: CREATININE 0.76 mg/dL (0.7-1.3)
[2019-10-30 08:10] VITALS: BP 109/68
[2019-10-30] MEDS ORDERED: FUROSEMIDE 20 MG TABLET ONE (10:01)
[2019-10-30] MEDS: FUROSEMIDE 10 MG/ML ORAL SOL PO SCH (10:04)
[2019-10-30] MEDS: DRONABINOL 2.5 MG CAPSULE PO SCH ×2 (10:04→21:07)
[2019-10-30] MEDS: NYSTATIN TOPICAL POWDER 15GM TP SCH ×3 (10:06→21:07)
[2019-10-30] MEDS: SODIUM CHLORIDE FLUSH 10ML SYR IVF SCH ×2 (10:06→21:06)
[2019-10-30 14:15] VITALS: BP 110/69
[2019-10-30 18:38] VITALS: BP 122/73
[2019-10-31] MEDS: HEPARIN 5,000 UNITS/ML, 1ML SQ SCH ×3 (01:11→16:20)
[2019-10-31 01:13] VITALS: BP 125/69
[2019-10-31 05:25] LABS: BASOPHILS # (AUTO) 0.09 x10^3/uL (0-0.1); BASOPHILS % (AUTO) 1 % (0-1); EOSINOPHILS # (AUTO) 0.51 x10^3/uL (0-0.4); EOSINOPHILS % (AUTO) 7 % (1-7); LYMPHOCYTES # (AUTO) 1.49 x10^3/uL (1-3.4); LYMPHOCYTES % (AUTO) 19 % (22-44); MD NO; MEAN CORPUSCULAR HEMOGLOBIN 30.8 pg (27.5-34.5); MEAN CORPUSCULAR HGB CONC 33.1 g/dL (33.2-36.2); MEAN CORPUSCULAR VOLUME 93.2 fL (81-97); MEAN PLATELET VOLUME 7.4 fL (7.4-10.4); MONOCYTES # (AUTO) 0.97 x10^3/uL (0.2-0.8); MONOCYTES % (AUTO) 13 % (2-9); NEUTROPHILS # (AUTO) 4.68 x10^3/uL (1.8-6.8); NEUTROPHILS % (AUTO) 60 % (42-75); PLATELET COUNT 431 x10^3/uL (130-400); RED BLOOD COUNT 4.41 x10^6/uL (4.38-5.82)
[2019-10-31 05:35] LABS: ANION GAP 7 mmol/L (5-15); CALCIUM 8.6 mg/dL (8.5-10.1); CHLORIDE 103 mmol/L (98-107); CREATININE 0.73 mg/dL (0.7-1.3)
[2019-10-31] MEDS: PIPERACILLIN/TAZO/PMX 3.375GM 50 ML IV SCH ×3 (05:41→18:11)
[2019-10-31 07:42] VITALS: BP 115/71
[2019-10-31] MEDS ORDERED: PHARMACY INSTRUCTION MC PRN (08:00)
[2019-10-31] MEDS ORDERED: INSTRUCTION SEE COMMENTS XX PRN (08:00)
[2019-10-31] MEDS: NYSTATIN TOPICAL POWDER 15GM TP SCH ×3 (08:30→21:34)
[2019-10-31] MEDS: DRONABINOL 2.5 MG CAPSULE PO SCH ×2 (08:30→21:34)
[2019-10-31] MEDS: FUROSEMIDE 10 MG/ML ORAL SOL PO SCH (08:30)
[2019-10-31] MEDS: SODIUM CHLORIDE FLUSH 10ML SYR IVF SCH ×2 (08:31→21:35)
[2019-10-31] MEDS: MORPHINE SULFATE 4 MG/ML, 1ML IVPush PRN (10:20)
[2019-10-31] MEDS ORDERED: MORPHINE SULFATE 4 MG/ML, 1ML ONE (10:27)
[2019-10-31] MEDS ORDERED: morphine SULFATE ORAL.CONC 20 MG/ML PO PRN (10:30)
[2019-10-31 13:33] VITALS: BP 119/74
[2019-10-31] MEDS: ACETAMINOPHEN 650 MG/20.3 ML UDC PO/NG PRN ×2 (13:46→21:39)
[2019-10-31 18:36] VITALS: BP 109/70
[2019-10-31] MEDS ORDERED: RISPERIDONE 1 MG TAB.RAPDIS PO SCH (21:00)
[2019-10-31] MEDS: MELATONIN 3 MG TABLET PO SCH (21:34)
[2019-11-01] MEDS: PIPERACILLIN/TAZO/PMX 3.375GM 50 ML IV SCH ×4 (00:41→17:40)
[2019-11-01] MEDS: HEPARIN 5,000 UNITS/ML, 1ML SQ SCH ×3 (00:44→16:42)
[2019-11-01 01:29] VITALS: BP 103/70
[2019-11-01 06:50] VITALS: BP 111/70
[2019-11-01] MEDS: SODIUM CHLORIDE FLUSH 10ML SYR IVF SCH ×2 (09:05→21:18)
[2019-11-01] MEDS: FUROSEMIDE 10 MG/ML ORAL SOL PO SCH (09:05)
[2019-11-01] MEDS: DRONABINOL 2.5 MG CAPSULE PO SCH ×2 (09:05→21:17)
[2019-11-01] MEDS: NYSTATIN TOPICAL POWDER 15GM TP SCH ×3 (09:07→21:18)
[2019-11-01] MEDS ORDERED: POTASSIUM CHLORIDE 20 MEQ TAB.ER.PRT ONE (09:10)
[2019-11-01] MEDS ORDERED: POTASSIUM CHLORIDE 20 MEQ TAB.ER.PRT PO ONE (09:30)
[2019-11-01 13:38] VITALS: BP 113/68
[2019-11-01 19:31] VITALS: BP 117/74
[2019-11-01] MEDS: MELATONIN 3 MG TABLET PO SCH (21:17)
[2019-11-01] MEDS: QUETIAPINE 25MG TABLET PO PRN (21:17)
[2019-11-01] MEDS: ACETAMINOPHEN 650 MG/20.3 ML UDC PO/NG PRN (21:18)
[2019-11-02] MEDS: PIPERACILLIN/TAZO/PMX 3.375GM 50 ML IV SCH ×4 (00:30→18:11)
[2019-11-02] MEDS: HEPARIN 5,000 UNITS/ML, 1ML SQ SCH ×3 (00:30→17:16)
[2019-11-02 00:49] VITALS: BP 102/61
[2019-11-02 07:34] VITALS: BP 108/64
[2019-11-02] MEDS: SODIUM CHLORIDE FLUSH 10ML SYR IVF SCH ×2 (08:52→21:00)
[2019-11-02] MEDS: ACETAMINOPHEN 650 MG/20.3 ML UDC PO/NG PRN (08:52)
[2019-11-02] MEDS: NYSTATIN TOPICAL POWDER 15GM TP SCH ×3 (08:53→20:22)
[2019-11-02] MEDS: DRONABINOL 2.5 MG CAPSULE PO SCH ×2 (08:53→20:22)
[2019-11-02] MEDS: FUROSEMIDE 10 MG/ML ORAL SOL PO SCH (09:38)
[2019-11-02] MEDS: MORPHINE SULFATE 4 MG/ML, 1ML IVPush PRN (09:38)
[2019-11-02 12:56] VITALS: BP 110/71
[2019-11-02 19:00] VITALS: BP 113/69
[2019-11-02] MEDS: QUETIAPINE 25MG TABLET PO PRN (20:22)
[2019-11-02] MEDS: MELATONIN 3 MG TABLET PO SCH (20:22)
[2019-11-03] MEDS: PIPERACILLIN/TAZO/PMX 3.375GM 50 ML IV SCH ×4 (00:13→18:02)
[2019-11-03] MEDS: HEPARIN 5,000 UNITS/ML, 1ML SQ SCH ×3 (01:27→17:27)
[2019-11-03 06:44] VITALS: BP 115/67
[2019-11-03] MEDS: ASCORBIC ACID 500 MG TABLET PO SCH ×2 (08:52→17:26)
[2019-11-03] MEDS: MULTIVITS,STRESS FORMULA 1 TABLET PO SCH (08:52)
[2019-11-03] MEDS: CHOLECALCIFEROL 400 UNITS TABLET PO SCH (08:52)
[2019-11-03] MEDS: DRONABINOL 2.5 MG CAPSULE PO SCH ×2 (08:53→20:48)
[2019-11-03] MEDS: FUROSEMIDE 10 MG/ML ORAL SOL PO SCH (08:53)
[2019-11-03] MEDS: SODIUM CHLORIDE FLUSH 10ML SYR IVF SCH ×2 (08:53→20:48)
[2019-11-03] MEDS: NYSTATIN TOPICAL POWDER 15GM TP SCH ×3 (08:54→20:48)
[2019-11-03 13:11] LABS: CLOSTRIDIUM DIFFICILE ANTIGEN NEGATIVE; CLOSTRIDIUM DIFFICILE TOXIN NEGATIVE (Negative)
[2019-11-03 14:00] VITALS: BP 108/70
[2019-11-03 18:04] VITALS: BP 124/73
[2019-11-03] MEDS: MELATONIN 3 MG TABLET PO SCH (20:48)
[2019-11-03] MEDS: DIPHENOXYLATE/ATROPINE TABLET PO PRN (20:57)
[2019-11-04] MEDS: PIPERACILLIN/TAZO/PMX 3.375GM 50 ML IV SCH ×4 (00:14→17:37)
[2019-11-04] MEDS: HEPARIN 5,000 UNITS/ML, 1ML SQ SCH ×3 (02:02→17:26)
[2019-11-04] MEDS: DIPHENOXYLATE/ATROPINE TABLET PO PRN ×3 (05:12→17:26)
[2019-11-04 05:49] LABS: BASOPHILS # (AUTO) 0.16 x10^3/uL (0-0.1); BASOPHILS % (AUTO) 2 % (0-1); EOSINOPHILS % (AUTO) 11 % (1-7); LYMPHOCYTES # (AUTO) 2.13 x10^3/uL (1-3.4); LYMPHOCYTES % (AUTO) 26 % (22-44); MD NO; MEAN CORPUSCULAR HEMOGLOBIN 30.9 pg (27.5-34.5); MEAN CORPUSCULAR HGB CONC 32.7 g/dL (33.2-36.2); MEAN CORPUSCULAR VOLUME 94.3 fL (81-97); MEAN PLATELET VOLUME 7.2 fL (7.4-10.4); MONOCYTES % (AUTO) 11 % (2-9); NEUTROPHILS # (AUTO) 4.23 x10^3/uL (1.8-6.8); NEUTROPHILS % (AUTO) 51 % (42-75); PLATELET COUNT 410 x10^3/uL (130-400); RED BLOOD COUNT 4.53 x10^6/uL (4.38-5.82)
[2019-11-04 06:04] LABS: ALBUMIN 2.3 g/dL (3.4-5.0); ANION GAP 7 mmol/L (5-15); CALCIUM 8.8 mg/dL (8.5-10.1); CHLORIDE 103 mmol/L (98-107); CREATININE 0.68 mg/dL (0.7-1.3)
[2019-11-04 07:25] VITALS: BP 119/71
[2019-11-04] MEDS ORDERED: POTASSIUM CHLORIDE 20 MEQ in SODIUM CHLORIDE 0.9% 250 ML IV ONE (07:30)
[2019-11-04] MEDS ORDERED: FUROSEMIDE 20 MG TABLET ONE (07:57)
[2019-11-04] MEDS: MULTIVITS,STRESS FORMULA 1 TABLET PO SCH (08:00)
[2019-11-04] MEDS: CHOLECALCIFEROL 400 UNITS TABLET PO SCH (08:00)
[2019-11-04] MEDS: DRONABINOL 2.5 MG CAPSULE PO SCH ×2 (08:00→21:13)
[2019-11-04] MEDS: ASCORBIC ACID 500 MG TABLET PO SCH ×2 (08:00→17:26)
[2019-11-04] MEDS: SODIUM CHLORIDE FLUSH 10ML SYR IVF SCH ×2 (08:01→21:13)
[2019-11-04] MEDS: NYSTATIN TOPICAL POWDER 15GM TP SCH ×3 (08:01→21:16)
[2019-11-04] MEDS: FUROSEMIDE 10 MG/ML ORAL SOL PO SCH (08:01)
[2019-11-04] MEDS: PSYLLIUM PACKET PO SCH ×2 (12:19→21:13)
[2019-11-04 14:02] VITALS: BP 117/70
[2019-11-04 19:20] VITALS: BP 120/74
[2019-11-04] MEDS: QUETIAPINE 25MG TABLET PO PRN (21:13)
[2019-11-04] MEDS: MELATONIN 3 MG TABLET PO SCH (21:13)
[2019-11-05] MEDS: PIPERACILLIN/TAZO/PMX 3.375GM 50 ML IV SCH ×5 (00:04→23:17)
[2019-11-05] MEDS: HEPARIN 5,000 UNITS/ML, 1ML SQ SCH ×3 (02:31→17:05)
[2019-11-05 03:12] VITALS: BP 108/68
[2019-11-05 05:55] LABS: ALBUMIN 2.3 g/dL (3.4-5.0); ANION GAP 7 mmol/L (5-15); CALCIUM 8.6 mg/dL (8.5-10.1); CHLORIDE 106 mmol/L (98-107); CREATININE 0.63 mg/dL (0.7-1.3)
[2019-11-05 07:50] VITALS: BP 110/70
[2019-11-05] MEDS: DIPHENOXYLATE/ATROPINE TABLET PO PRN ×2 (07:51→18:48)
[2019-11-05] MEDS: DRONABINOL 2.5 MG CAPSULE PO SCH ×2 (07:51→20:47)
[2019-11-05] MEDS: ASCORBIC ACID 500 MG TABLET PO SCH ×2 (07:51→17:05)
[2019-11-05] MEDS: CHOLECALCIFEROL 400 UNITS TABLET PO SCH (07:51)
[2019-11-05] MEDS: PSYLLIUM PACKET PO SCH ×2 (07:52→20:47)
[2019-11-05] MEDS: SODIUM CHLORIDE FLUSH 10ML SYR IVF SCH ×2 (07:52→20:47)
[2019-11-05] MEDS: MULTIVITS,STRESS FORMULA 1 TABLET PO SCH (07:52)
[2019-11-05] MEDS: NYSTATIN TOPICAL POWDER 15GM TP SCH ×3 (07:53→20:47)
[2019-11-05] MEDS: FUROSEMIDE 10 MG/ML ORAL SOL PO SCH ×2 (07:53→08:11)
[2019-11-05] MEDS: POTASSIUM CHLORIDE 20 MEQ in SODIUM CHLORIDE 0.9% 250 ML IV ONE ×2 (08:11→17:43)
[2019-11-05] MEDS: MORPHINE SULFATE 4 MG/ML, 1ML IVPush PRN (09:18)
[2019-11-05 15:17] VITALS: BP 120/70
[2019-11-05 20:15] VITALS: BP 134/78
[2019-11-05] MEDS: MELATONIN 3 MG TABLET PO SCH (20:47)
[2019-11-06 02:11] VITALS: BP 116/67
[2019-11-06] MEDS: HEPARIN 5,000 UNITS/ML, 1ML SQ SCH ×3 (02:45→16:36)
[2019-11-06] MEDS: QUETIAPINE 25MG TABLET PO PRN (02:45)
[2019-11-06] MEDS: PIPERACILLIN/TAZO/PMX 3.375GM 50 ML IV SCH ×2 (05:22→11:54)
[2019-11-06 05:54] LABS: ALBUMIN 2.2 g/dL (3.4-5.0); ANION GAP 7 mmol/L (5-15); CALCIUM 8.6 mg/dL (8.5-10.1); CHLORIDE 108 mmol/L (98-107); CREATININE 0.58 mg/dL (0.7-1.3)
[2019-11-06 06:00] LABS: BASOPHILS # (AUTO) 0.09 x10^3/uL (0-0.1); BASOPHILS % (AUTO) 1 % (0-1); EOSINOPHILS # (AUTO) 0.74 x10^3/uL (0-0.4); EOSINOPHILS % (AUTO) 10 % (1-7); LYMPHOCYTES # (AUTO) 1.93 x10^3/uL (1-3.4); LYMPHOCYTES % (AUTO) 25 % (22-44); MD NO; MEAN CORPUSCULAR HEMOGLOBIN 30.9 pg (27.5-34.5); MEAN CORPUSCULAR HGB CONC 33.2 g/dL (33.2-36.2); MEAN PLATELET VOLUME 7.3 fL (7.4-10.4); MONOCYTES # (AUTO) 0.73 x10^3/uL (0.2-0.8); MONOCYTES % (AUTO) 10 % (2-9); NEUTROPHILS # (AUTO) 4.15 x10^3/uL (1.8-6.8); NEUTROPHILS % (AUTO) 54 % (42-75); PLATELET COUNT 389 x10^3/uL (130-400); RED BLOOD COUNT 4.29 x10^6/uL (4.38-5.82); RED CELL DISTRIBUTION WIDTH 14.6 % (9.4-14.8)
[2019-11-06 07:45] VITALS: BP 117/71
[2019-11-06] MEDS: DRONABINOL 2.5 MG CAPSULE PO SCH ×2 (09:12→21:19)
[2019-11-06] MEDS: MULTIVITS,STRESS FORMULA 1 TABLET PO SCH (09:12)
[2019-11-06] MEDS: ASCORBIC ACID 500 MG TABLET PO SCH ×2 (09:12→16:36)
[2019-11-06] MEDS: DIPHENOXYLATE/ATROPINE TABLET PO PRN ×2 (09:12→21:19)
[2019-11-06] MEDS: CHOLECALCIFEROL 400 UNITS TABLET PO SCH (09:12)
[2019-11-06] MEDS: SODIUM CHLORIDE FLUSH 10ML SYR IVF SCH ×2 (09:12→21:33)
[2019-11-06] MEDS: FUROSEMIDE 10 MG/ML ORAL SOL PO SCH (09:13)
[2019-11-06] MEDS: PSYLLIUM PACKET PO SCH ×2 (09:13→21:32)
[2019-11-06] MEDS: NYSTATIN TOPICAL POWDER 15GM TP SCH ×3 (09:13→21:20)
[2019-11-06 14:00] VITALS: BP 113/71
[2019-11-06 18:59] VITALS: BP 126/74
[2019-11-06] MEDS: MELATONIN 3 MG TABLET PO SCH (21:19)
[2019-11-07 01:42] VITALS: BP 154/74
[2019-11-07] MEDS: HEPARIN 5,000 UNITS/ML, 1ML SQ SCH ×3 (01:42→16:56)
[2019-11-07] MEDS ORDERED: FUROSEMIDE 20 MG TABLET ONE (08:42)
[2019-11-07] MEDS: CHOLECALCIFEROL 400 UNITS TABLET PO SCH (08:55)
[2019-11-07] MEDS: ASCORBIC ACID 500 MG TABLET PO SCH ×2 (08:55→16:56)
[2019-11-07] MEDS: PSYLLIUM PACKET PO SCH ×2 (08:56→20:35)
[2019-11-07] MEDS: SODIUM CHLORIDE FLUSH 10ML SYR IVF SCH ×2 (08:56→20:37)
[2019-11-07] MEDS: MULTIVITS,STRESS FORMULA 1 TABLET PO SCH (08:56)
[2019-11-07] MEDS: DRONABINOL 2.5 MG CAPSULE PO SCH ×2 (08:57→20:37)
[2019-11-07 09:03] VITALS: BP 131/77
[2019-11-07] MEDS: NYSTATIN TOPICAL POWDER 15GM TP SCH ×3 (09:03→20:37)
[2019-11-07] MEDS: FUROSEMIDE 10 MG/ML ORAL SOL PO SCH (09:03)
[2019-11-07] MEDS: ACETAMINOPHEN 650 MG/20.3 ML UDC PO/NG PRN ×2 (09:03→15:16)
[2019-11-07] MEDS: MORPHINE SULFATE 4 MG/ML, 1ML IVPush PRN (09:42)
[2019-11-07 13:35] VITALS: BP 118/70
[2019-11-07] MEDS: DIPHENOXYLATE/ATROPINE TABLET PO PRN (15:16)
[2019-11-07 19:55] VITALS: BP 130/75
[2019-11-07] MEDS: MELATONIN 3 MG TABLET PO SCH (20:37)
[2019-11-08] MEDS: HEPARIN 5,000 UNITS/ML, 1ML SQ SCH ×3 (01:16→17:35)
[2019-11-08 02:23] VITALS: BP 130/73
[2019-11-08 07:00] VITALS: BP 130/76
[2019-11-08] MEDS: PSYLLIUM PACKET PO SCH ×2 (09:00→21:00)
[2019-11-08] MEDS: NYSTATIN TOPICAL POWDER 15GM TP SCH ×3 (09:27→21:15)
[2019-11-08] MEDS: FUROSEMIDE 10 MG/ML ORAL SOL PO SCH (09:27)
[2019-11-08] MEDS: MULTIVITS,STRESS FORMULA 1 TABLET PO SCH (09:27)
[2019-11-08] MEDS: DRONABINOL 2.5 MG CAPSULE PO SCH ×2 (09:27→21:15)
[2019-11-08] MEDS: DIPHENOXYLATE/ATROPINE TABLET PO PRN (09:27)
[2019-11-08] MEDS: CHOLECALCIFEROL 400 UNITS TABLET PO SCH (09:27)
[2019-11-08] MEDS: ASCORBIC ACID 500 MG TABLET PO SCH ×2 (09:27→17:35)
[2019-11-08] MEDS: SODIUM CHLORIDE FLUSH 10ML SYR IVF SCH ×2 (09:28→21:15)
--- NOTE | 2019-11-08 09:40 | NUR ---
NURSING ACTIVITY SHEET 1. GET PATIENT UP IN CHAIR 1-3X'S DAILY 2. AFTER TRANSFERRING FROM CHAIR BACK TO BED, WORK ON 2-4 SIT TO STANDS FROM EDGE OF BED WITH FWW MODERATE ASSIST 2P. 3. PT IS TO WORK ON SEATED B LE STRENGTHENING EXERCISES WHILE IN CHAIR 1-3X'S DAILY. 2 X 10-20 REPS. EXERCISES PER GREEN HANDOUT REVIEWED AND GIVEN TO PATIENT: 1. PILLOW ADDUCTOR SQUEEZES 2. HIP ABDUCTION WITH #3 RESISTANCE BAND 3. SEATED KNEE EXTENSION. 4. SEATED MARCHING. 5. ANKLE DORSIFLEXION/PLANTAR FLEXION. Addendum: 11/08/19 at 1323 by MOE BHAGAT PTA Amended: Links added.
[2019-11-08] MEDS ORDERED: TAMSULOSIN 0.4 MG CAP.ER.24H ONE (11:52)
[2019-11-08] MEDS: TAMSULOSIN 0.4 MG CAP.ER.24H PO SCH (11:57)
[2019-11-08 12:57] VITALS: BP 118/67
[2019-11-08 18:07] LABS: CULTURE INDICATED? YES; MICROSCOPIC INDICATED
[2019-11-08 19:33] VITALS: BP 111/70
[2019-11-08] MEDS: MELATONIN 3 MG TABLET PO SCH (21:15)
[2019-11-09 01:15] VITALS: BP 120/68
[2019-11-09] MEDS: HEPARIN 5,000 UNITS/ML, 1ML SQ SCH (02:04)
[2019-11-09 08:00] VITALS: BP 136/77
[2019-11-09] MEDS ORDERED: FUROSEMIDE 20 MG TABLET ONE (08:31)
[2019-11-09] MEDS ORDERED: ENOXAPARIN 40 MG/0.4 ML ONE (08:38)
[2019-11-09] MEDS: ASCORBIC ACID 500 MG TABLET PO SCH ×2 (08:41→16:40)
[2019-11-09] MEDS: PSYLLIUM PACKET PO SCH ×2 (08:41→20:44)
[2019-11-09] MEDS: DRONABINOL 2.5 MG CAPSULE PO SCH ×2 (08:42→20:54)
[2019-11-09] MEDS: FUROSEMIDE 10 MG/ML ORAL SOL PO SCH (08:42)
[2019-11-09] MEDS: TAMSULOSIN 0.4 MG CAP.ER.24H PO SCH (08:42)
[2019-11-09] MEDS: CHOLECALCIFEROL 400 UNITS TABLET PO SCH (08:42)
[2019-11-09] MEDS: MULTIVITS,STRESS FORMULA 1 TABLET PO SCH (08:42)
[2019-11-09] MEDS: MORPHINE SULFATE 4 MG/ML, 1ML IVPush PRN (08:43)
[2019-11-09] MEDS: NYSTATIN TOPICAL POWDER 15GM TP SCH ×3 (08:44→20:55)
[2019-11-09] MEDS: SODIUM CHLORIDE FLUSH 10ML SYR IVF SCH ×2 (08:44→20:54)
[2019-11-09] MEDS: ENOXAPARIN 40 MG/0.4 ML SQ SCH (08:45)
[2019-11-09 13:18] VITALS: BP 124/73
[2019-11-09 18:28] VITALS: BP 101/63
[2019-11-09] MEDS: MELATONIN 3 MG TABLET PO SCH (20:54)
[2019-11-10 01:00] VITALS: BP 122/71
[2019-11-10 06:53] VITALS: BP 139/74
[2019-11-10] MEDS: PSYLLIUM PACKET PO SCH ×2 (09:00→20:29)
[2019-11-10] MEDS: ASCORBIC ACID 500 MG TABLET PO SCH ×2 (09:25→17:08)
[2019-11-10] MEDS: TAMSULOSIN 0.4 MG CAP.ER.24H PO SCH (09:25)
[2019-11-10] MEDS: NYSTATIN TOPICAL POWDER 15GM TP SCH ×3 (09:25→20:36)
[2019-11-10] MEDS: CHOLECALCIFEROL 400 UNITS TABLET PO SCH (09:25)
[2019-11-10] MEDS: FUROSEMIDE 10 MG/ML ORAL SOL PO SCH (09:25)
[2019-11-10] MEDS: DRONABINOL 2.5 MG CAPSULE PO SCH ×2 (09:25→20:36)
[2019-11-10] MEDS: MULTIVITS,STRESS FORMULA 1 TABLET PO SCH (09:25)
[2019-11-10] MEDS: ENOXAPARIN 40 MG/0.4 ML SQ SCH (09:26)
[2019-11-10] MEDS: SODIUM CHLORIDE FLUSH 10ML SYR IVF SCH ×2 (09:35→21:00)
[2019-11-10 12:25] VITALS: BP 121/76
[2019-11-10 18:30] VITALS: BP 121/74
[2019-11-10] MEDS: MELATONIN 3 MG TABLET PO SCH (20:36)
[2019-11-11 02:40] VITALS: BP 129/76
[2019-11-11 07:50] VITALS: BP 118/72
[2019-11-11 07:52] VITALS: BP 118/72
[2019-11-11] MEDS: PSYLLIUM PACKET PO SCH ×2 (09:00→20:29)
[2019-11-11] MEDS: MULTIVITS,STRESS FORMULA 1 TABLET PO SCH (09:50)
[2019-11-11] MEDS: FUROSEMIDE 10 MG/ML ORAL SOL PO SCH (09:50)
[2019-11-11] MEDS: TAMSULOSIN 0.4 MG CAP.ER.24H PO SCH (09:50)
[2019-11-11] MEDS: CHOLECALCIFEROL 400 UNITS TABLET PO SCH (09:50)
[2019-11-11] MEDS: ASCORBIC ACID 500 MG TABLET PO SCH ×2 (09:50→17:00)
[2019-11-11] MEDS: ENOXAPARIN 40 MG/0.4 ML SQ SCH (09:50)
[2019-11-11] MEDS: DRONABINOL 2.5 MG CAPSULE PO SCH ×2 (09:50→20:30)
[2019-11-11] MEDS: SODIUM CHLORIDE FLUSH 10ML SYR IVF SCH ×2 (09:51→20:29)
[2019-11-11] MEDS: NYSTATIN TOPICAL POWDER 15GM TP SCH ×3 (09:51→20:30)
[2019-11-11 13:51] VITALS: BP 107/73
[2019-11-11 19:31] VITALS: BP 114/74
[2019-11-11] MEDS: MELATONIN 3 MG TABLET PO SCH (20:30)
[2019-11-12 02:41] VITALS: BP 128/76
[2019-11-12 07:29] VITALS: BP 115/66
[2019-11-12] MEDS: PSYLLIUM PACKET PO SCH ×2 (08:19→19:31)
[2019-11-12] MEDS: FUROSEMIDE 10 MG/ML ORAL SOL PO SCH (08:19)
[2019-11-12] MEDS: ENOXAPARIN 40 MG/0.4 ML SQ SCH (08:19)
[2019-11-12] MEDS: DRONABINOL 2.5 MG CAPSULE PO SCH ×2 (08:20→19:40)
[2019-11-12] MEDS: CHOLECALCIFEROL 400 UNITS TABLET PO SCH (08:20)
[2019-11-12] MEDS: ASCORBIC ACID 500 MG TABLET PO SCH ×2 (08:20→16:26)
[2019-11-12] MEDS: TAMSULOSIN 0.4 MG CAP.ER.24H PO SCH (08:20)
[2019-11-12] MEDS: SODIUM CHLORIDE FLUSH 10ML SYR IVF SCH ×2 (08:20→19:40)
[2019-11-12] MEDS: NYSTATIN TOPICAL POWDER 15GM TP SCH ×3 (08:21→19:40)
[2019-11-12] MEDS: MULTIVITS,STRESS FORMULA 1 TABLET PO SCH (08:21)
[2019-11-12] MEDS: DIPHENOXYLATE/ATROPINE TABLET PO PRN (08:24)
[2019-11-12] MEDS: MORPHINE SULFATE 4 MG/ML, 1ML IVPush PRN (13:21)
[2019-11-12 13:46] VITALS: BP 113/72
[2019-11-12] MEDS: MELATONIN 3 MG TABLET PO SCH (19:40)
[2019-11-12 19:44] VITALS: BP 117/74
[2019-11-13 00:49] VITALS: BP 111/62
[2019-11-13] MEDS: PSYLLIUM PACKET PO SCH (07:19)
[2019-11-13 07:23] VITALS: BP 115/67
[2019-11-13] MEDS: TAMSULOSIN 0.4 MG CAP.ER.24H PO SCH (09:28)
[2019-11-13] MEDS: MULTIVITS,STRESS FORMULA 1 TABLET PO SCH (09:28)
[2019-11-13] MEDS: ASCORBIC ACID 500 MG TABLET PO SCH (09:28)
[2019-11-13] MEDS: FUROSEMIDE 10 MG/ML ORAL SOL PO SCH (09:28)
[2019-11-13] MEDS: ENOXAPARIN 40 MG/0.4 ML SQ SCH (09:28)
[2019-11-13] MEDS: CHOLECALCIFEROL 400 UNITS TABLET PO SCH (09:29)
[2019-11-13] MEDS: DRONABINOL 2.5 MG CAPSULE PO SCH (09:29)
[2019-11-13] MEDS: SODIUM CHLORIDE FLUSH 10ML SYR IVF SCH (09:29)
[2019-11-13] MEDS: NYSTATIN TOPICAL POWDER 15GM TP SCH (09:31)
[2019-11-13] MEDS ORDERED: MELA3TAB56 PO (10:52)
[2019-11-13] MEDS ORDERED: ASCO500T6 PO (10:52)
[2019-11-13] MEDS ORDERED: Dronabinol PO (10:52)
[2019-11-13] MEDS ORDERED: CHOL400T2 PO (10:52)
[2019-11-13] MEDS ORDERED: TAMS-11 PO (10:52)
[2019-11-13] MEDS ORDERED: MULT1TAB76 PO (10:52)
[2019-11-13 13:00] VITALS: BP 118/68
== END 2019-11-13 13:05 | DRG 853 ==
LOC: ED 14:11 → EDIP 14:22 → 4EST 21:07 → CCU 10-16 03:48 → 4NE 10-22 13:20
PROVIDERS: ADMIT Internal Medicine; ATTEND Internal Medicine
PROC: 0DBH0ZZ Excision of Cecum, Open Approach (ICD-10-PCS; 2019-10-15)
PROC: 0YQ60ZZ Repair Left Inguinal Region, Open Approach (ICD-10-PCS; principal; 2019-10-15 14:45)
PROC: 5A1945Z Respiratory Ventilation, 24-96 Consecutive Hours (ICD-10-PCS; 2019-10-16)
PROC: 0BH17EZ Insertion of Endotracheal Airway into Trachea, Via Natural or Artificial Opening (ICD-10-PCS; 2019-10-16)
PROC: 02HV33Z Insertion of Infusion Device into Superior Vena Cava, Percutaneous Approach (ICD-10-PCS; 2019-10-16)
PROC: B548ZZA Ultrasonography of Superior Vena Cava, Guidance (ICD-10-PCS; 2019-10-16)
DX: A41.9 Sepsis, unspecified organism (principal); G93.41 Metabolic encephalopathy; I21.A1 Myocardial infarction type 2; J96.01 Acute respiratory failure with hypoxia; K55.069 Acute infarction of intestine, part and extent unspecified; K65.0 Generalized (acute) peritonitis; N17.0 Acute kidney failure with tubular necrosis; R65.21 Severe sepsis with septic shock; E87.1 Hypo-osmolality and hyponatremia; I50.32 Chronic diastolic (congestive) heart failure; K40.00 Bilateral inguinal hernia, with obstruction, without gangrene, not specified as recurrent; M87.9 Osteonecrosis, unspecified; N44.00 Torsion of testis, unspecified; Z99.11 Dependence on respirator [ventilator] status; E86.0 Dehydration; E86.1 Hypovolemia; E87.6 Hypokalemia; K76.0 Fatty (change of) liver, not elsewhere classified; N49.2 Inflammatory disorders of scrotum; N50.89 Other specified disorders of the male genital organs; Z66 Do not resuscitate; Z87.891 Personal history of nicotine dependence
CPT/HCPCS: 36415; 36600; 74018; 74022; 76870; 84145; 96361; 96374; 99291; J3490; J7644; 70450; 71045; 76700; 76770; 80048; 80053; 80061; 80069; 80074; 81001; 82040; 82330; 82436; 82533; 82570; 82803; 82962; 83605; 83735; 84100; 84132; 84133; 84134; 84300; 84478; 84484; 85025; 87040; 87070; 87075; 87077; 87081; 87086; 87102; 87186; 87205; 87324; 88307; 93005; 93306; 94002; 94003; 94640; C1729; G0378; J0610; J0696; J1100; J1170; J1644; J1650; J1815; J1940; J2250; J2310; J2405; J2543; J2704; J3010; J3480; J7070; J7120; P9047; Q0167; 92523-GN; J0295; J0330; J2270; J2370; J3420; J3475; J7030; J7050

== ENCOUNTER 2020-01-25 07:57 | Inpatient (IN) | payer OTHER, MEDICARE ==
[~2020-01-25] VITALS: Ht 170.2 cm; Wt 76.9 kg
[~2020-01-25 07:57] MED LIST: ASCO500T9 PO; CHOL400T2 PO; Dronabinol PO; MELA3TAB31 PO; MULT1TAB76 PO; TAMS-11 PO
[2020-01-25] MEDS ORDERED: HYDROcodone/APAP 5/325 TABLET ONE (09:21)
--- NOTE | 2020-01-25 09:25 | NUR ---
Pt presents to ED with c/o left testicle pain and swelling, bleeding, and irritation with pmh of left sided hernia on 10/15/19 with surgery at [facility] by Dr. Contreras. Pt presents with step-son, and requests step-son to speak to health care providers on his behalf regarding pmh. Pt pushed from waiting room to ED room in wheelchair by ED RN and assisted SBA to [place]. Pt resting on gurney connected to NIBP cuff and continous pulse ox monitor. Bedrails up x 2 and call light within reach. NADN. No other needs expressed.
[2020-01-25] MEDS ORDERED: HYDROcodone/APAP 5/325 TABLET PO ONE (09:30)
[2020-01-25 09:32] LABS: BASOPHILS # (AUTO) 0.06 x10^3/uL (0-0.1); BASOPHILS % (AUTO) 1 % (0-1); EOSINOPHILS # (AUTO) 0.04 x10^3/uL (0-0.4); EOSINOPHILS % (AUTO) 1 % (1-7); LYMPHOCYTES # (AUTO) 1.73 x10^3/uL (1-3.4); LYMPHOCYTES % (AUTO) 21 % (22-44); MD NO; MEAN CORPUSCULAR HEMOGLOBIN 29.6 pg (27.5-34.5); MEAN CORPUSCULAR HGB CONC 32.5 g/dL (33.2-36.2); MEAN CORPUSCULAR VOLUME 91.1 fL (81-97); MEAN PLATELET VOLUME 6.4 fL (7.4-10.4); MONOCYTES # (AUTO) 0.65 x10^3/uL (0.2-0.8); MONOCYTES % (AUTO) 8 % (2-9); NEUTROPHILS # (AUTO) 5.89 x10^3/uL (1.8-6.8); NEUTROPHILS % (AUTO) 70 % (42-75); PLATELET COUNT 529 x10^3/uL (130-400); RED BLOOD COUNT 4.94 x10^6/uL (4.38-5.82); RED CELL DISTRIBUTION WIDTH 14.9 % (9.4-14.8)
--- NOTE | 2020-01-25 09:36 | NUR ---
Provided medication per EMAR. Pt appreciative. Pt transported on gurney from ED to ultrasound. Pt's step-son followed.
[2020-01-25 09:40] LABS: ALANINE AMINOTRANSFERASE 35 U/L (12-78); ALBUMIN 3.3 g/dL (3.4-5.0); ANION GAP 9 mmol/L (5-15); CALCIUM 9.3 mg/dL (8.5-10.1); CHLORIDE 108 mmol/L (98-107); CREATININE 0.75 mg/dL (0.7-1.3)
[2020-01-25 09:42] LABS: ALKALINE PHOSPHATASE 118 U/L (45-117); BILIRUBIN,TOTAL 0.4 mg/dL (0.2-1.0); TOTAL PROTEIN 7.8 g/dL (6.4-8.2)
--- NOTE | 2020-01-25 10:55 | NUR ---
REPORT RECEIVED FROM SHANIKA SCHMITZ. ASSUMING CARE AT THIS TIME.
[2020-01-25] MEDS ORDERED: CEFTRIAXONE PMX 1GM/50ML 50 ML IV ONE (11:00)
[2020-01-25] MEDS ORDERED: CEFTRIAXONE PMX 1GM/50ML 50 ML ONE (11:02)
--- NOTE | 2020-01-25 11:17 | NUR ---
PIV PLACED. ABX RUNNING PER SEP. AT BEDSIDE TO UPDATE PT AND FAMILY ON POC. AWAITING ADMIT BED UPSTAIRS.
--- NOTE | 2020-01-25 11:32 | NUR ---
REPORT GIVEN TO ARIK SCHMITZ.
[2020-01-25] MEDS ORDERED: morphine SULFATE 10 MG/ML, 1ML IVPush PRN ×2 (12:00→16:00)
[2020-01-25] MEDS ORDERED: ACETAMINOPHEN 325 MG TABLET PO PRN ×2 (12:00→16:00)
[2020-01-25] MEDS ORDERED: ONDANSETRON ODT 4 MG PO PRN (12:00)
[2020-01-25] MEDS ORDERED: BISACODYL 10 MG SUPP PR PRN (12:00)
[2020-01-25] MEDS ORDERED: ONDANSETRON 2MG/ML, 2ML IVPush PRN ×2 (12:00→16:00)
[2020-01-25] MEDS ORDERED: TRAZODONE 50MG TABLET PO PRN (12:00)
[2020-01-25 12:13] VITALS: BP 124/75
[2020-01-25] MEDS: AMPICILLIN/SULBACTAM 3 GM in SODIUM CHLORIDE 0.9% 100 ML IV SCH ×2 (13:52→20:26)
[2020-01-25 14:06] VITALS: BP 124/75
[2020-01-25] MEDS ORDERED: VANCOMYCIN PER PHARMACY MC PRN ×2 (15:00→19:00)
[2020-01-25] MEDS ORDERED: BUPIVACAINE/PF 0.5% ONE (15:02)
[2020-01-25] MEDS ORDERED: FENTANYL PF 250 MCG/5ML ONE (15:14)
[2020-01-25] MEDS ORDERED: PROPOFOL 10 MG/ML, 20ML ONE (15:15)
[2020-01-25] MEDS ORDERED: CHLORHEXIDINE 15 ML UDC ONE (15:17)
[2020-01-25] MEDS ORDERED: CHLORHEXIDINE 15 ML UDC MM ONE (15:30)
[2020-01-25] MEDS ORDERED: PHARMACOKINETIC CONSULTATION MC ONE (15:30)
[2020-01-25] MEDS ORDERED: PHARMACOKINETIC MONITORING MC PRN (15:30)
[2020-01-25] MEDS ORDERED: VANCOMYCIN 1,900 MG in SODIUM CHLORIDE 0.9% 250 ML IV ONE ×2 (15:30→19:00)
[2020-01-25] MEDS ORDERED: LABETALOL 5MG/ML, 20ML IV PRN (16:00)
[2020-01-25] MEDS ORDERED: OXYcodone 5 MG/5 ML ORAL.SOL UDC PO PRN (16:00)
[2020-01-25] MEDS ORDERED: hydrALAzine 20 MG/ML, 1ML IV PRN (16:00)
[2020-01-25] MEDS ORDERED: HYDROmorphone 1 MG/ML, 1ML INJ IVPush PRN (16:00)
[2020-01-25] MEDS ORDERED: MEPERIDINE/PF 25MG/0.5ML IVPush PRN (16:00)
[2020-01-25] MEDS ORDERED: FENTANYL PF 100 MCG/2ML IV PRN (16:00)
[2020-01-25 18:21] VITALS: BP 125/76
[2020-01-25] MEDS: CLOTRIMAZOLE TROCHES 10 MG PO SCH ×2 (18:28→22:00)
[2020-01-25] MEDS: NS + 20MEQ KCL 1,000 ML IV SCH (18:28)
[2020-01-25] MEDS: MELATONIN 3 MG TABLET PO SCH (22:00)
[2020-01-26 00:16] VITALS: BP 105/65
[2020-01-26] MEDS: AMPICILLIN/SULBACTAM 3 GM in SODIUM CHLORIDE 0.9% 100 ML IV SCH ×4 (02:14→19:42)
[2020-01-26 03:38] VITALS: BP 109/71
[2020-01-26 05:51] LABS: BASOPHILS # (AUTO) 0.07 x10^3/uL (0-0.1); BASOPHILS % (AUTO) 1 % (0-1); EOSINOPHILS # (AUTO) 0.07 x10^3/uL (0-0.4); EOSINOPHILS % (AUTO) 1 % (1-7); LYMPHOCYTES # (AUTO) 1.35 x10^3/uL (1-3.4); LYMPHOCYTES % (AUTO) 12 % (22-44); MD NO; MEAN CORPUSCULAR HEMOGLOBIN 29.6 pg (27.5-34.5); MEAN CORPUSCULAR HGB CONC 32.3 g/dL (33.2-36.2); MEAN CORPUSCULAR VOLUME 91.7 fL (81-97); MEAN PLATELET VOLUME 6.8 fL (7.4-10.4); MONOCYTES # (AUTO) 0.75 x10^3/uL (0.2-0.8); MONOCYTES % (AUTO) 7 % (2-9); NEUTROPHILS # (AUTO) 8.86 x10^3/uL (1.8-6.8); NEUTROPHILS % (AUTO) 80 % (42-75); PLATELET COUNT 469 x10^3/uL (130-400); RED BLOOD COUNT 4.67 x10^6/uL (4.38-5.82); RED CELL DISTRIBUTION WIDTH 15.1 % (9.4-14.8)
[2020-01-26 06:04] LABS: ANION GAP 8 mmol/L (5-15); CALCIUM 8.5 mg/dL (8.5-10.1); CHLORIDE 109 mmol/L (98-107)
[2020-01-26] MEDS: NS + 20MEQ KCL 1,000 ML IV SCH ×2 (06:15→17:04)
[2020-01-26] MEDS: CLOTRIMAZOLE TROCHES 10 MG PO SCH ×5 (06:15→20:28)
[2020-01-26 07:04] VITALS: BP 107/67
[2020-01-26] MEDS: SENNA/DOCUSATE TABLET PO SCH (08:25)
[2020-01-26] MEDS: DRONABINOL 2.5 MG CAPSULE PO SCH ×2 (08:25→20:29)
[2020-01-26] MEDS: TAMSULOSIN 0.4 MG CAP.ER.24H PO SCH (08:25)
[2020-01-26 13:21] VITALS: BP 106/63
[2020-01-26 18:51] VITALS: BP 120/69
[2020-01-26] MEDS ORDERED: areds 2 PO (19:41)
[2020-01-26] MEDS ORDERED: VANCOMYCIN 1,500 MG in SODIUM CHLORIDE 0.9% 250 ML IV SCH (20:00)
[2020-01-26] MEDS: MELATONIN 3 MG TABLET PO SCH (20:29)
[2020-01-27 01:10] VITALS: BP 114/63
[2020-01-27] MEDS: NS + 20MEQ KCL 1,000 ML IV SCH (02:22)
[2020-01-27] MEDS: AMPICILLIN/SULBACTAM 3 GM in SODIUM CHLORIDE 0.9% 100 ML IV SCH ×4 (02:22→20:14)
[2020-01-27] MEDS: CLOTRIMAZOLE TROCHES 10 MG PO SCH ×5 (06:02→20:55)
[2020-01-27 06:33] VITALS: BP 126/72
[2020-01-27] MEDS: DRONABINOL 2.5 MG CAPSULE PO SCH ×2 (07:39→20:55)
[2020-01-27] MEDS: SENNA/DOCUSATE TABLET PO SCH (07:39)
[2020-01-27] MEDS: TAMSULOSIN 0.4 MG CAP.ER.24H PO SCH (07:39)
[2020-01-27 13:31] VITALS: BP 128/68
[2020-01-27 18:51] VITALS: BP 156/79
[2020-01-27] MEDS: MELATONIN 3 MG TABLET PO SCH (20:54)
[2020-01-28 00:57] VITALS: BP 127/88
[2020-01-28] MEDS: AMPICILLIN/SULBACTAM 3 GM in SODIUM CHLORIDE 0.9% 100 ML IV SCH ×4 (02:23→20:20)
[2020-01-28] MEDS: CLOTRIMAZOLE TROCHES 10 MG PO SCH ×5 (06:02→20:59)
[2020-01-28 06:57] VITALS: BP 136/74
[2020-01-28] MEDS: HEPARIN 5,000 UNITS/ML, 1ML SQ SCH ×3 (08:30→21:01)
[2020-01-28] MEDS: DRONABINOL 2.5 MG CAPSULE PO SCH ×2 (08:38→20:59)
[2020-01-28] MEDS: SENNA/DOCUSATE TABLET PO SCH (08:38)
[2020-01-28] MEDS: TAMSULOSIN 0.4 MG CAP.ER.24H PO SCH (08:39)
[2020-01-28 10:47] LABS: ALBUMIN 2.7 g/dL (3.4-5.0); ANION GAP 9 mmol/L (5-15); CALCIUM 8.3 mg/dL (8.5-10.1); CHLORIDE 109 mmol/L (98-107)
[2020-01-28 10:52] LABS: ALANINE AMINOTRANSFERASE 21 U/L (12-78); ALKALINE PHOSPHATASE 98 U/L (45-117); BILIRUBIN,TOTAL 0.5 mg/dL (0.2-1.0); TOTAL PROTEIN 6.7 g/dL (6.4-8.2)
[2020-01-28 12:56] VITALS: BP 132/74
[2020-01-28] MEDS: POTASSIUM CHLORIDE 20 MEQ TAB.ER.PRT PO SCH (17:18)
[2020-01-28 18:23] LABS: CHOL/HDL RATIO 3.2; LDL/HDL RATIO 1.8 (0.5-3.0)
[2020-01-28 19:59] VITALS: BP 122/74
[2020-01-28] MEDS: MELATONIN 3 MG TABLET PO SCH (20:59)
[2020-01-29 01:05] VITALS: BP 123/82
[2020-01-29 01:33] VITALS: BP 113/70
[2020-01-29] MEDS: AMPICILLIN/SULBACTAM 3 GM in SODIUM CHLORIDE 0.9% 100 ML IV SCH ×2 (02:20→08:36)
[2020-01-29 05:33] LABS: ALANINE AMINOTRANSFERASE 21 U/L (12-78); ALBUMIN 2.5 g/dL (3.4-5.0); ANION GAP 7 mmol/L (5-15); CALCIUM 8.3 mg/dL (8.5-10.1); CHLORIDE 113 mmol/L (98-107); CREATININE 0.57 mg/dL (0.7-1.3)
[2020-01-29 05:35] LABS: ALKALINE PHOSPHATASE 94 U/L (45-117); BASOPHILS # (AUTO) 0.07 x10^3/uL (0-0.1); BASOPHILS % (AUTO) 1 % (0-1); BILIRUBIN,TOTAL 0.5 mg/dL (0.2-1.0); EOSINOPHILS % (AUTO) 7 % (1-7); LYMPHOCYTES # (AUTO) 1.74 x10^3/uL (1-3.4); LYMPHOCYTES % (AUTO) 23 % (22-44); MD NO; MEAN CORPUSCULAR HEMOGLOBIN 29.6 pg (27.5-34.5); MEAN CORPUSCULAR HGB CONC 32.5 g/dL (33.2-36.2); MONOCYTES # (AUTO) 0.68 x10^3/uL (0.2-0.8); MONOCYTES % (AUTO) 9 % (2-9); NEUTROPHILS # (AUTO) 4.73 x10^3/uL (1.8-6.8); NEUTROPHILS % (AUTO) 61 % (42-75); PLATELET COUNT 425 x10^3/uL (130-400); RED BLOOD COUNT 4.72 x10^6/uL (4.38-5.82); RED CELL DISTRIBUTION WIDTH 15.1 % (9.4-14.8); TOTAL PROTEIN 6.4 g/dL (6.4-8.2)
[2020-01-29] MEDS: CLOTRIMAZOLE TROCHES 10 MG PO SCH ×5 (06:12→20:56)
[2020-01-29 08:07] VITALS: BP 126/73
[2020-01-29] MEDS: HEPARIN 5,000 UNITS/ML, 1ML SQ SCH ×2 (08:30→14:30)
[2020-01-29] MEDS: POTASSIUM CHLORIDE 20 MEQ TAB.ER.PRT PO SCH ×2 (08:36→17:36)
[2020-01-29] MEDS: TAMSULOSIN 0.4 MG CAP.ER.24H PO SCH (08:37)
[2020-01-29] MEDS: DRONABINOL 2.5 MG CAPSULE PO SCH ×2 (08:37→20:56)
[2020-01-29] MEDS: SENNA/DOCUSATE TABLET PO SCH (09:00)
[2020-01-29] MEDS ORDERED: POTASSIUM CHLORIDE 40 MEQ in SODIUM CHLORIDE 0.9% 500 ML IV ONE (09:00)
[2020-01-29 09:55] LABS: C-REACTIVE PROTEIN, QUANT 2.8 mg/dL (0.02-0.49)
[2020-01-29] MEDS: CEFTRIAXONE PMX 2GM/50ML 50 ML IV SCH (10:35)
[2020-01-29 13:59] VITALS: BP 115/72
[2020-01-29 20:02] VITALS: BP 120/74
[2020-01-29] MEDS: MELATONIN 3 MG TABLET PO SCH (20:56)
[2020-01-30] MEDS: HEPARIN 5,000 UNITS/ML, 1ML SQ SCH ×3 (00:30→15:46)
[2020-01-30 01:59] VITALS: BP 115/73
[2020-01-30] MEDS: CLOTRIMAZOLE TROCHES 10 MG PO SCH ×3 (06:21→14:30)
[2020-01-30 07:55] VITALS: BP 118/73
[2020-01-30] MEDS: SENNA/DOCUSATE TABLET PO SCH (08:17)
[2020-01-30] MEDS: TAMSULOSIN 0.4 MG CAP.ER.24H PO SCH (08:22)
[2020-01-30] MEDS: DRONABINOL 2.5 MG CAPSULE PO SCH (08:23)
[2020-01-30] MEDS: POTASSIUM CHLORIDE 20 MEQ TAB.ER.PRT PO SCH (08:23)
[2020-01-30] MEDS: CEFTRIAXONE PMX 2GM/50ML 50 ML IV SCH (10:06)
[2020-01-30 12:19] VITALS: BP 142/81
[2020-01-30 13:25] LABS: ALANINE AMINOTRANSFERASE 33 U/L (12-78); ALBUMIN 2.9 g/dL (3.4-5.0); ANION GAP 5 mmol/L (5-15); CALCIUM 8.8 mg/dL (8.5-10.1); CHLORIDE 113 mmol/L (98-107); CREATININE 0.69 mg/dL (0.7-1.3)
[2020-01-30 13:27] LABS: ALKALINE PHOSPHATASE 116 U/L (45-117); BILIRUBIN,TOTAL 0.3 mg/dL (0.2-1.0); TOTAL PROTEIN 7.2 g/dL (6.4-8.2)
== END 2020-01-30 17:05 | disposition home health service (06) | DRG 717 ==
LOC: ED 08:35 → EDIP 11:43 → 4NE 12:01 → DCLOUNGE 01-30 16:54
PROVIDERS: ADMIT Emergency Medicine; ATTEND Emergency Medicine
PROC: 0VB50ZZ Excision of Scrotum, Open Approach (ICD-10-PCS; 2020-01-25)
PROC: 02HV33Z Insertion of Infusion Device into Superior Vena Cava, Percutaneous Approach (ICD-10-PCS; principal; 2020-01-29)
PROC: B548ZZA Ultrasonography of Superior Vena Cava, Guidance (ICD-10-PCS; 2020-01-29)
DX: N49.3 Fournier gangrene (principal); E43 Unspecified severe protein-calorie malnutrition; L03.311 Cellulitis of abdominal wall; K40.30 Unilateral inguinal hernia, with obstruction, without gangrene, not specified as recurrent; N44.00 Torsion of testis, unspecified; N49.2 Inflammatory disorders of scrotum; B37.9 Candidiasis, unspecified; B96.4 Proteus (mirabilis) (morganii) as the cause of diseases classified elsewhere; E87.6 Hypokalemia; N50.89 Other specified disorders of the male genital organs; Z82.49 Family history of ischemic heart disease and other diseases of the circulatory system; Z83.3 Family history of diabetes mellitus; Z68.26 Body mass index [BMI] 26.0-26.9, adult; Z20.828 Contact with and (suspected) exposure to other viral communicable diseases
CPT/HCPCS: 36415; 76870; 96374; 99285; S0020; 36573; 71045; 80048; 80053; 80061; 83735; 85025; 85651; 86140; 87070; 87075; 87077; 87186; 87205; 87635; 88305; 93005; G0378; J0295; J0696; J2704; J3010; J3370; J3480; Q0167; C1751; J2270; J7050